=== PATIENT | male | born 1990 | race Caucasian/White ===

== ENCOUNTER 2017-04-06 15:41 | Inpatient (IN) | payer BC, OTHER ==
[~2017-04-06] VITALS: Ht 177.8 cm; Wt 61.2 kg
[2017-04-06] MEDS ORDERED: DICYCLOMINE HCL 20 MG TABLET PO PRN (21:15)
[2017-04-06] MEDS ORDERED: ACETAMINOPHEN 325 MG TABLET PO PRN (21:15)
[2017-04-06] MEDS ORDERED: diphenhydrAMINE 50 MG CAPSULE PO PRN (21:15)
[2017-04-06] MEDS ORDERED: LOPERAMIDE HCL 2 MG CAPSULE PO PRN ×2 (21:15)
[2017-04-06] MEDS ORDERED: MIRALAX 17 GM POWD.PACK PO PRN (21:15)
[2017-04-06] MEDS ORDERED: IBUPROFEN 600 MG TABLET PO PRN (21:15)
[2017-04-06] MEDS ORDERED: LORAZEPAM 1 MG TABLET PO PRN (21:15)
[2017-04-06] MEDS ORDERED: ONDANSETRON ODT 4 MG TAB.RAPDIS SL PRN (21:15)
[2017-04-06] MEDS ORDERED: HYDROXYZINE PAMOATE 25 MG CAPSULE PO PRN (21:15)
[2017-04-06] MEDS ORDERED: MAG HYDROX/AL HYDROX/SIMETH 30 ML LIQUID UDC PO PRN (21:15)
[2017-04-06] MEDS ORDERED: CLONIDINE HCL 0.1 MG TABLET PO PRN (21:15)
[2017-04-06] MEDS ORDERED: METHOCARBAMOL 750 MG TABLET PO PRN (21:15)
[2017-04-06] MEDS ORDERED: MAGNESIUM HYDROXIDE 30 ML LIQUID UDC PO PRN (21:15)
[2017-04-06] MEDS ORDERED: BUPRENORPHINE HCL 2 MG TAB.SUBL SL PRN (21:15)
[2017-04-06] MEDS ORDERED: ONDANSETRON 4 MG/2 ML VIAL IM PRN (21:15)
--- NOTE | 2017-04-06 21:40 | NUR ---
Pre Admission Note Patient is a 26-year old, male, seen at intake, AAOx4, no SOB and with slight anxiety noted at this time. Discussed with patient admission policies of the unit. Patient is coherent and able to respond to questions appropriately. Pt is ambulatory with steady gait. Vital signs taken and as follows: KQ=901/82, P=101, O2 sat on RA=97%, RR=16, T=97.9. Pt verbalized instructions and teachings regarding disposal of narcotic and other controlled home meds, unit protocols such as taking of vital signs Q4H and handling and disposal of contraband. Will continue with admission upon pts arrival on the unit.
[2017-04-06 21:50] VITALS: BP 131/82
--- NOTE | 2017-04-06 21:50 | NUR ---
Admission Note Pt is a 26 year old male admitted on 04/06/2017 for Opiate dependence, on the unit at 2150. Denies Allergies, denies any history of seizure.. Upon admission, COWS 4, BP 131/82, pulse 101, respirations 16, SpO2 97% room air, temp 97.9, weight 135 lb, height 5'10". Pts primary care provider is Dr. Ferraro in [place], [place] & reports smoking 1 pack of cigarettes/daily. Pt denies being hospitalized within the past 30 days. Pt is able to understand and respond to all questions pertaining to his hospitalization. Substance Abuse History is as Follows: 1.Heroin IV 2g/daily, last intake of 0.5g on 04/06/2017, at this rate for 11 days, pt has been using for 8 years 2. Methamphetamine IV 0.5g/daily, last intake of 0.2g/daily on 04/06/2017, at this rate for 11 days, pt has been using for 3-4 years. Pt reports using Suboxone 16mg strips for maintenance. Pt reports he last used Suboxone strips 8 months ago. When pt does not use she experiences s/s: "" sweats, chills, body aches, runny nose/teary eyes and anxiety". Pt longest sober period was for "4 months" in 2014. This is patients second time in treatment. Previous treatment history: 1. [facility], from December through January 2017 PMH: Asthma, depression, Insomnia, Anxiety and hx of Chlamydia. Pt denies being hospitalized within the past 30 days. Pt reports he was in custodial 2 weeks ago d/t violated probation, MRSA swab done. Pt is alert/oriented x4, PERRLA. Pt presents with anxiety, mild body aches, skin clammy, noted with sweat, respirations even/unlabored, denies SOB/chest pain, bowel sounds active x4, abdomen soft. Scars noted throughout upper torso and left and right arms due heroin/meth use, as reported by pt. Pt has abscess on left biceps and reddened track rachell/abscess on right biceps, pictures taken and placed in chart. Pt denies SI/HI. Education provided, education pamphlets provided and left at bedside, Pt oriented to room and encouraged to notify staff with any concerns. Safety measures in place, call light within reach, side rails up x2, bed locked and in low position. Will continue to monitor.
[2017-04-06 22:00] LABS: ETHANOL < 3 MG/DL (0-0)
[2017-04-06 22:04] LABS: ALANINE AMINOTRANSFERASE 28 U/L (16-63); ALKALINE PHOSPHATASE 63 U/L (50-136); ASPARTATE AMINOTRANSFERASE 13 U/L (15-37); BILIRUBIN,TOTAL 0.4 mg/dL (0.2-1.0); CARBON DIOXIDE 32 mmol/L (21-32); CHLORIDE 104 mmol/L (98-107); CREATININE 0.9 mg/dL (0.6-1.3); GLUCOSE 88 mg/dL (74-106); MAGNESIUM 2.3 mg/dL (1.8-2.4); POTASSIUM 3.7 mmol/L (3.5-5.1); TOTAL PROTEIN, SERUM 7.6 g/dL (6.4-8.2); UREA NITROGEN, BLOOD 17 mg/dL (7-18)
[2017-04-06 22:11] LABS: BASOPHILS # (AUTO) 0.2 K/uL (0.0-8.0); BASOPHILS % (AUTO) 1.9 % (0.0-2.0); EOSINOPHILS # (AUTO) 0.3 K/uL (0.0-0.7); EOSINOPHILS % (AUTO) 2.8 % (0.0-7.0); HEMATOCRIT 39.5 % (40-50); HEMOGLOBIN 13.4 G/DL (14.0-18.0); LYMPHOCYTES # (AUTO) 3.1 K/UL (0.8-4.8); LYMPHOCYTES % (AUTO) 25.2 % (20.5-51.5); MEAN CORPUSCULAR HEMOGLOBIN 27.5 UUG (27.0-31.0); MEAN CORPUSCULAR HGB CONC 34 g/dL (32.0-37.0); MEAN CORPUSCULAR VOLUME 81.1 FL (82.0-92.0); MONOCYTES # (AUTO) 0.5 K/UL (0.1-1.30); MONOCYTES % (AUTO) 4.4 % (0.0-11.0); NEUTROPHILS # (AUTO) 8.1 K/UL (1.8-8.9); NEUTROPHILS % (AUTO) 65.7 % (38.5-71.5); RED BLOOD CELL COUNT(AUTO) 4.87 MIL/UL (4.7-6.1); WHITE BLOOD COUNT (AUTO) 12.3 K/UL (4.0-11.2)
[2017-04-06 22:35] LABS: NEUTROPHILS % (MANUAL) 60 % (42-75)
[2017-04-06 22:36] LABS: EOSINOPHILS % (MANUAL) 1 % (0-8); LYMPHOCYTES % (MANUAL) 36 % (20-40); MONOCYTES % (MANUAL) 3 % (2-10); PLATELET COUNT (AUTO) 185 K/UL (150-450)
[2017-04-07] VITALS: BP 104/65
--- NOTE | 2017-04-07 | NUR ---
Vital Signs BP 104/65, pulse 82, resp 16, SpO2 99% room air, temp 97.6, no reports of pain COWS deferred d/t pt sleeping to assess while pt is awake as ordered. Safety measures in place, will continue to monitor.
[2017-04-07] MEDS ORDERED: ALBU8.5H8 IH (00:05)
[2017-04-07] MEDS ORDERED: BUPR1FIL3 SL (00:05)
[2017-04-07 04:00] VITALS: BP 96/52
--- NOTE | 2017-04-07 04:00 | NUR ---
Vital Signs BP 96/52, pulse 79, resp 16, SpO2 99% room air, temp 97.8, no reports of pain COWS deferred d/t pt sleeping to assess while pt is awake as ordered. Safety measures in place, will continue to monitor.
--- NOTE | 2017-04-07 07:00 | NUR ---
End of Shift Pt is a 26 year old male admitted for Heroin dependence. Pt reported using Heroin IV 2g/daily, last intake of 0.5g on 04/06/2017 and Methamphetamine IV 0.5g/daily, last intake of 0.2g/daily on 04/06/2017. PMH: Asthma, depression, Insomnia, Anxiety and hx of Chlamydia, NKA, regular diet, fall precautions and full code. No PRN medications administered during shift, COWS 4. . Pt has abscess on left biceps and reddened track rachell/abscess on right biceps, pictures taken and placed in chart. Urine drug not provided, will endorse onto day shift. Pt slept for 3 hours, intake of 355ml PO, voids x0 and stool x0. Safety measures in place, call light within reach, side rails up x2, bed locked and in low position. Endorsed to day shift nurse.
[2017-04-07 08:00] VITALS: BP 96/59
--- NOTE | 2017-04-07 08:00 | NUR ---
START OF SHIFT NOTE patient is alert and orientated X4. Patient was admitted last night. Patient is laying in bed, respirations are even and unlabored. Patient slept 3 hours last night according to night nurse with COWS 4. Vital signs are stable this morning, urine is to be collected. Abscess of right and Left arms were documented and accessed. All safety measures in place. Will continue to monitor.
[2017-04-07] MEDS ORDERED: TUBERCULIN,PURIF.PROT.DERIV. 5 TU/0.1 ML TEST ID ONE (09:00)
[2017-04-07] MEDS: LACTOBACILLUS RHAMNOSUS GG 1 EACH CAPSULE PO SCH ×2 (09:29→21:49)
[2017-04-07] MEDS: BUPRENORPHINE HCL 2 MG TAB.SUBL SL SCH ×4 (09:29→21:49)
[2017-04-07] MEDS: SULFAMETH/TRIMETH 800/160 MG TABLET PO SCH ×2 (09:29→21:49)
[2017-04-07] MEDS: MULTIVITAMINS,THERAPEUTIC TABLET PO SCH (09:29)
[2017-04-07 12:00] VITALS: BP 113/63
[2017-04-07 12:35] LABS: *AMPHETAMINE, URINE POSITIVE (NEGATIVE); *BARBITURATE, URINE NEGATIVE (NEGATIVE); *CANNABINOID, URINE NEGATIVE (NEGATIVE); *COCCAINE, URINE NEGATIVE (NEGATIVE); *OPIATE, URINE POSITIVE (NEGATIVE); *PHENCYCLIDINE SCREEN,URINE NEGATIVE (NEGATIVE)
--- NOTE | 2017-04-07 15:15 | NUR ---
Pt seen and examined by Dr. Marshall
[2017-04-07] MEDS ORDERED: ALBUTEROL INHALER INH PRN (15:45)
[2017-04-07 16:00] VITALS: BP 110/58
--- NOTE | 2017-04-07 16:50 | NUR ---
Therapist prompted client to attend daily group sessions at 11am and 3:30pm. Client stated that he would attend the next group if he was feeling well.
--- NOTE | 2017-04-07 18:56 | NUR ---
325 END OF SHIFT NOTE Patient is alert and orientated X4. Patient was admitted last night. NKA, full code, regular diet. Patients vitals have remained stable throughout the day. Last COWS 6. Patient started a Subutex taper and is tolerating well. He has remained in bed most of the day resting and did not attend group activities. TB was done today and urine was collected. Patient was seen by MD and is complaint with orders. All safety measures in place; call light within reach, bed locked and in lowest position. All needs have been met. Will continue to monitor patient until endorsed to oncoming night nurse.
--- NOTE | 2017-04-07 19:55 | NUR ---
START OF SHIFT Received report from day shift nurse. Pt is lying in bed watching TV. He is a 26 yo male admitted to [facility] on 04/06 for opiate dependence. He is A&O x4 and ambulatory. NKA, full code, regular diet. He has a PMH of asthma, anxiety, depression, insomnia, and h/o Chlamydia. On admission he reported using heroin 2 grams per day and methamphetamine 0.5 grams per day. 5 day Subutex taper started today. He reports chills, muscle aches, nasal stuffiness. He has dilated pupils and moist skin. Taper due tonight. Fall precautions in place. Bed is down with call light in reach.
[2017-04-07 20:00] VITALS: BP 116/56
[2017-04-07] MEDS: QUETIAPINE FUMARATE 100 MG TABLET PO SCH (21:00)
[2017-04-07] MEDS: GABAPENTIN 300 MG CAPSULE PO SCH (21:49)
[2017-04-08] VITALS: BP 113/62
[2017-04-08 04:00] VITALS: BP 96/52
--- NOTE | 2017-04-08 04:00 | NUR ---
0400 COWS deferred COWS ordered Q4HWA. Pt is lying in bed resting with eyes closed. Respirations even and unlabored. Vital signs obtained. Safety measures in place.
--- NOTE | 2017-04-08 07:22 | NUR ---
END OF SHIFT Report provided to day shift nurse. Pt is lying in bed resting. He is a 26 yo male admitted to [facility] on 04/06 for opiate dependence. He is A&O x4 and ambulatory. NKA, full code, regular diet. He has a PMH of asthma, anxiety, depression, insomnia, and h/o Chlamydia. On admission he reported using heroin 2 grams per day and methamphetamine 0.5 grams per day. 5 day Subutex taper started 04/07. No PRN medications administered. He refused 2100 Seroquel. Last COWS 4. He drank 591mL and slept for 8 hours. Fall precautions in place. Bed is down with call light in reach.
[2017-04-08 08:00] VITALS: BP 100/56
[2017-04-08] MEDS: SULFAMETH/TRIMETH 800/160 MG TABLET PO SCH ×2 (09:20→21:04)
[2017-04-08] MEDS: GABAPENTIN 300 MG CAPSULE PO SCH ×2 (09:20→21:04)
[2017-04-08] MEDS: MULTIVITAMINS,THERAPEUTIC TABLET PO SCH (09:20)
[2017-04-08] MEDS: buPROPion XL 150 MG TAB.SR.24H PO SCH (09:20)
[2017-04-08] MEDS: BUPRENORPHINE HCL 2 MG TAB.SUBL SL SCH ×3 (09:20→21:04)
[2017-04-08] MEDS: LACTOBACILLUS RHAMNOSUS GG 1 EACH CAPSULE PO SCH ×2 (09:20→21:03)
--- NOTE | 2017-04-08 09:30 | NUR ---
START OF SHIFT Received report from senior embedded software engineer nurse. Patient is 26 year old male admitted for medically supervised withdrawal from heroin. Patient is full code with NKA. On 5-day Subutex taper (started 04/07/17). On assessment this AM: COWS: 6. Denies SOB, chest pain. vitals signs 100/56, HR 80, R19, temp 98.1, 02 sat 98% RA. Reports mild anxiety, body aches, stuffy nose, pupil dilation noted. Med compliant with AM meds. Redness, swelling and warmth noted on L and R upper arms due to abscess. Photos taken, possible I&D today. Warm packs applied on affected areas. Antibiotic po given to patient. Patient was encouraged to attend group meetings today. Will continue to monitor patient.
[2017-04-08 10:12] LABS: HEPATITIS B SURFACE AG Negative (Negative)
[2017-04-08 12:00] VITALS: BP 94/59
[2017-04-08 16:00] VITALS: BP 96/53
--- NOTE | 2017-04-08 19:15 | NUR ---
END OF SHIFT Patient is 26 year old male admitted for medically supervised withdrawal from heroin. Patient is full code with NKA. On 5-day Subutex taper (started 04/07/17). Most recent COWS: 3. Patient reports anxiety, stuffy nose, pupil dilation noted. Seen by PARTS LISTER in the afternoon regarding patient's abscess. Explained to PARTS LISTER there is decreased swelling and redness noted as compared to the photos taken previously. No I&D procedure at this time per PARTS LISTER. Pt. is agreeable with the plan at this time. Applied warm packs this afternoon. Will continue to monitor the affected sites. Med compliant with routine meds during this shift. Patient tolerating meals without n/v. night fillerassistant shift supervisor will continue to monitor patient.
--- NOTE | 2017-04-08 19:55 | NUR ---
START OF SHIFT Received report from day shift nurse. Pt is resting in bed watching TV. He is a 26 yo male admitted to [facility] on 04/06 for opiate dependence. He is A&O x4 and ambulatory. NKA, full code, regular diet. He has a PMH of asthma, anxiety, depression, insomnia, and h/o Chlamydia. On admission he reported using heroin 2 grams per day and methamphetamine 0.5 grams per day. 5 day Subutex taper started today. He reports chills, muscle aches, nasal stuffiness. He has dilated pupils and moist skin. Taper due tonight. Fall precautions in place. Bed is down with call light in reach.
[2017-04-08 20:00] VITALS: BP 95/62
[2017-04-08] MEDS: QUETIAPINE FUMARATE 100 MG TABLET PO SCH (21:00)
[2017-04-08] MEDS: CLONIDINE HCL 0.1 MG TABLET PO SCH (21:00)
[2017-04-08] MEDS: BACLOFEN 10 MG TABLET PO SCH (21:03)
[2017-04-09] VITALS: BP 97/59
--- NOTE | 2017-04-09 04:00 | NUR ---
Vitals/COWS Pt refused to be woken for 0400 vitals. Pt is lying in bed resting. Respirations even and unlabored. COWS ordered Q4HWA. Safety measures in place.
--- NOTE | 2017-04-09 07:08 | NUR ---
END OF SHIFT Report provided to day shift nurse. Pt is lying in bed resting. He is a 26 yo male admitted to [facility] on 04/06 for opiate dependence. He is A&O x4 and ambulatory. NKA, full code, regular diet. He has a PMH of asthma, anxiety, depression, insomnia, and h/o Chlamydia. On admission he reported using heroin 2 grams per day and methamphetamine 0.5 grams per day. 5 day Subutex taper started today. No PRN medications administered. Clonidine held due to decreased B/P and Seroquel refused. Last COWS was 3. He drank 1315mL and slept for 6 hours. Fall precautions in place. Bed is down with call light in reach.
[2017-04-09 08:00] VITALS: BP 101/56
[2017-04-09] MEDS: CLONIDINE HCL 0.1 MG TABLET PO SCH ×2 (08:48→21:33)
[2017-04-09] MEDS: MULTIVITAMINS,THERAPEUTIC TABLET PO SCH (08:49)
[2017-04-09] MEDS: LACTOBACILLUS RHAMNOSUS GG 1 EACH CAPSULE PO SCH ×2 (08:49→21:33)
[2017-04-09] MEDS: SULFAMETH/TRIMETH 800/160 MG TABLET PO SCH ×2 (08:49→21:33)
[2017-04-09] MEDS: buPROPion XL 150 MG TAB.SR.24H PO SCH (08:49)
[2017-04-09] MEDS: BACLOFEN 10 MG TABLET PO SCH ×3 (08:49→21:33)
[2017-04-09] MEDS: GABAPENTIN 300 MG CAPSULE PO SCH ×3 (08:49→21:33)
[2017-04-09] MEDS ORDERED: BUPRENORPHINE HCL 2 MG TAB.SUBL SL SCH (09:00)
--- NOTE | 2017-04-09 09:08 | NUR ---
START OF SHIFT Received report from cook night nurse. Patient is 26 year old male admitted for medically supervised withdrawal from heroin. Patient is full code with NKA. On 5-day Subutex taper (started 04/07/17). On assessment this AM: COWS: 3. Denies SOB, chest pain. Vitals signs 101/56, HR 66, R17, temp 97.4, 02 sat 99% RA. Reports mild anxiety, body aches, pupil dilation noted. Med compliant with AM meds. Held clonidine per parameter order. Redness, swelling and warmth noted on L and R upper arms due to abscess. Warm packs applied on affected areas. Antibiotic po given to patient. Patient was encouraged to attend group meetings today. Will continue to monitor patient.
[2017-04-09 12:00] VITALS: BP 107/58
[2017-04-09] MEDS: BUPRENORPHINE HCL 2 MG TAB.SUBL SL SCH ×2 (14:52→21:33)
[2017-04-09 16:00] VITALS: BP 103/48
--- NOTE | 2017-04-09 19:15 | NUR ---
END OF SHIFT Patient is 26 year old male admitted for medically supervised withdrawal from heroin. Patient is full code with NKA. On 5-day Subutex taper (started 04/07/17). Most recent COWS: 3. Patient reports mild anxiety, pupil dilation noted. Redness, swelling and warmth noted on L and R upper arms due to abscess. Warm packs applied on affected areas. Patient reports he is feeling better. Will continue to monitor the affected sites. Read PPD skin today, negative result. Med compliant with routine meds during this shift. awake overnight counselordate night caregiver will continue to monitor patient.
--- NOTE | 2017-04-09 19:16 | NUR ---
Start of shift note Received report from day shift nurse. Pt is a 26 yo male, A+Ox4, presenting to [facility] for Opiate/Meth dependence. Pt has NKA, is on Full code status and on Regular diet. Pt is on Fall precautions. Pt has HX of Anxiety, Asthma, Depression, insomnia, and Chlamydia. Pt is on 5 day Subutex taper, tolerated well. No s/s of distress noted at this time. Respirations even and unlabored. Will continue to monitor.
[2017-04-09 20:55] VITALS: BP 115/63
[2017-04-09] MEDS: QUETIAPINE FUMARATE 100 MG TABLET PO SCH (21:33)
[2017-04-10 00:47] VITALS: BP 99/57
[2017-04-10 04:16] VITALS: BP 103/62
--- NOTE | 2017-04-10 06:58 | NUR ---
End of shift note Pt is a 26 yo male, A+Ox4, presenting to [facility] for Opiate/Meth dependence. Pt has NKA, is on Full code status and on Regular diet. Pt is on Fall precautions. Pt has HX of Anxiety, Asthma, Depression, insomnia, and Chlamydia. Pt is on 5 day Subutex taper, tolerated well. Pt slept for a total of 9 HRS. Last COWS: 2 @0400. No s/s of distress noted at this time. Respirations even and unlabored. Will endorse to day shift nurse.
--- NOTE | 2017-04-10 07:05 | NUR ---
Start of Shift Endorsement received from nightshift nurse. Pt is a 26 y/o male admitted for Heroin and Meth dependence. Pt has been placed on a 5 day Subutex taper. Pt is tolerating the taper AEB COWS 2 at 0400. Pt did not receive any PRN medications. Pt reports sleeping 9 hours and feeling rested. VS WNL. Full Code. PT is alert and oriented x4. Pt is in STABLE condition at this time. Remains compliant with medication and diet regimen. All needs have been met, All safety measures in place per hospital policy. Bed in lowest position, side rails up x2, call-light within reach. Will continue to monitor
[2017-04-10 08:00] VITALS: BP 101/59
[2017-04-10] MEDS: BACLOFEN 10 MG TABLET PO SCH ×2 (08:46→15:38)
[2017-04-10] MEDS: buPROPion XL 150 MG TAB.SR.24H PO SCH (08:46)
[2017-04-10] MEDS: CLONIDINE HCL 0.1 MG TABLET PO SCH ×2 (08:47→20:25)
[2017-04-10] MEDS: GABAPENTIN 300 MG CAPSULE PO SCH ×3 (08:47→20:25)
[2017-04-10] MEDS: MULTIVITAMINS,THERAPEUTIC TABLET PO SCH (08:47)
[2017-04-10] MEDS: BUPRENORPHINE HCL 2 MG TAB.SUBL SL SCH ×3 (08:48→20:24)
[2017-04-10] MEDS: SULFAMETH/TRIMETH 800/160 MG TABLET PO SCH ×2 (08:48→20:24)
[2017-04-10] MEDS: LACTOBACILLUS RHAMNOSUS GG 1 EACH CAPSULE PO SCH ×2 (09:51→20:24)
[2017-04-10 12:00] VITALS: BP 107/55
[2017-04-10 16:00] VITALS: BP 116/71
[2017-04-10] MEDS ORDERED: BACLOFEN 10 MG TABLET PO PRN (16:45)
[2017-04-10] MEDS ORDERED: BUPR-96 PO (17:25)
[2017-04-10] MEDS ORDERED: QUET100T PO (17:25)
[2017-04-10] MEDS ORDERED: CLON0.1T14 PO (17:25)
[2017-04-10] MEDS ORDERED: BACL10TA PO (17:25)
[2017-04-10] MEDS ORDERED: HYDR-3895 PO (17:25)
[2017-04-10] MEDS ORDERED: DICY20TA28 PO (17:25)
[2017-04-10] MEDS ORDERED: GABA-534 PO (17:25)
[2017-04-10] MEDS ORDERED: IBUP-1955 PO (17:25)
--- NOTE | 2017-04-10 19:11 | NUR ---
End of Shift Endorsement given to nightshift nurse. Pt is a 26 y/o male admitted for Heroin and Meth dependence. Pt has been placed on a 5 day Subutex taper. Pt is tolerating the taper AEB COWS 2 at 1600. Pt did not receive any PRN medications. Pt did not participate in groups or activities. Encouraged pt to leave the room and participate in groups. Educated pt on diet and medication regimen. VS WNL. Full Code. Intake: 1150ml, Void x2, BM x1. PT is alert and oriented x4. Pt is in STABLE condition at this time. Remains compliant with medication and diet regimen. All needs have been met, All safety measures in place per hospital policy. Bed in lowest position, side rails up x2, call-light within reach. Will continue to monitor
[2017-04-10] MEDS: QUETIAPINE FUMARATE 100 MG TABLET PO SCH (20:25)
[2017-04-10 20:35] VITALS: BP 101/72
[2017-04-11 00:12] VITALS: BP 92/61
[2017-04-11 04:03] VITALS: BP 95/64
--- NOTE | 2017-04-11 07:00 | NUR ---
End of shift note Pt is a 26 yo male, A+Ox4, presenting to [facility] for Opiate/Meth dependence. Pt has NKA, is on Full code status and on Regular diet. Pt is on Fall precautions. Pt has HX of Anxiety, Asthma, Depression, insomnia, and Chlamydia. Pt is on 5 day Subutex taper, tolerated well. Pt slept for a total of 10 HRS. Last COWS: 1 @0400. No s/s of distress noted at this time. Respirations even and unlabored. Will endorse to day shift nurse.
--- NOTE | 2017-04-11 07:06 | NUR ---
Start of Shift Endorsement received from nightshift nurse. Pt is a 26 y/o male admitted for Heroin and Meth dependence. Pt has been placed on a 5 day Subutex taper. Pt is tolerating the taper AEB COWS 1 at 0400. Pt did not receive any PRN medications. Pt reports sleeping 10 hours and feeling rested. VS WNL. Full Code. PT is alert and oriented x4. Pt is in STABLE condition at this time. Remains compliant with medication and diet regimen. All needs have been met, All safety measures in place per hospital policy. Bed in lowest position, side rails up x2, call-light within reach. Will continue to monitor
[2017-04-11 08:00] VITALS: BP 94/62
[2017-04-11] MEDS ORDERED: BUPRENORPHINE HCL 2 MG TAB.SUBL SL SCH (09:00)
[2017-04-11] MEDS: CLONIDINE HCL 0.1 MG TABLET PO SCH (09:14)
[2017-04-11] MEDS: LACTOBACILLUS RHAMNOSUS GG 1 EACH CAPSULE PO SCH ×2 (09:14→20:53)
[2017-04-11] MEDS: GABAPENTIN 300 MG CAPSULE PO SCH ×3 (09:14→20:54)
[2017-04-11] MEDS: SULFAMETH/TRIMETH 800/160 MG TABLET PO SCH ×2 (09:14→20:53)
[2017-04-11] MEDS: MULTIVITAMINS,THERAPEUTIC TABLET PO SCH (09:14)
[2017-04-11] MEDS: buPROPion XL 150 MG TAB.SR.24H PO SCH (09:14)
[2017-04-11 12:00] VITALS: BP 102/68
[2017-04-11] MEDS ORDERED: CLONIDINE HCL 0.1 MG TABLET PO PRN (14:15)
[2017-04-11 16:00] VITALS: BP 118/62
[2017-04-11 18:44] LABS: *AMPHETAMINE, URINE NEGATIVE (NEGATIVE); *BARBITURATE, URINE NEGATIVE (NEGATIVE); *CANNABINOID, URINE NEGATIVE (NEGATIVE); *COCCAINE, URINE NEGATIVE (NEGATIVE); *OPIATE, URINE POSITIVE (NEGATIVE); *PHENCYCLIDINE SCREEN,URINE NEGATIVE (NEGATIVE)
--- NOTE | 2017-04-11 18:52 | NUR ---
End of Shift Endorsement given to nightshift nurse. Pt is a 26 y/o male admitted for Heroin and Meth dependence. Pt has been placed on a 5 day Subutex taper. Pt is tolerating the taper AEB COWS 1 at 1600. Pt has completed the taper and has been scheduled to be discharged on 04/12/17. Pt did not receive any PRN medications. Pt participate in groups or activities. Provided discharge education and all discharge paperwork and documentation has been completed. Encouraged pt to leave the room and participate in groups. Reinforced pt on S/E of withdrawals and how to deal with them. VS WNL. Full Code. Intake: 1900ml, Void x2, BM x1. PT is alert and oriented x4. Pt is in STABLE condition at this time. Remains compliant with medication and diet regimen. All needs have been met, All safety measures in place per hospital policy. Bed in lowest position, side rails up x2, call-light within reach. Will continue to monitor
--- NOTE | 2017-04-11 19:15 | NUR ---
Start of Shift Patient Received. Patient is in his room watching TV. Patient is alert and oriented. Breathing even and non labored. No signs of pain or discomfort. Patient is a 26 year old male, admitted on 04/06/17 for Opiate Dependence under the care of Dr. Duque. Patient has completed a 5 day Subutex taper. Patient verbalizes no known allergies, wishes to be full code, following a regular diet, placed on fall precautions. Skin is noted with Bilateral upper extremities Abscesses and continues on ATB Therapy Bactrim DS. Past Medical History verbalized as Anxiety, Asthma, Depression, insomnia, and history of Chlamydia. Per endorsement, patient is set for discharge tomorrow 04/12/17. No PRN Medication administered. Last noted COWS is 1. All needs attended to promptly. Will continue plan of care as ordered.
[2017-04-11 20:48] VITALS: BP 105/59
[2017-04-11] MEDS: QUETIAPINE FUMARATE 100 MG TABLET PO SCH (20:53)
[2017-04-12 00:20] VITALS: BP 108/64
[2017-04-12 04:00] VITALS: BP 103/53
--- NOTE | 2017-04-12 07:05 | NUR ---
Start of Shift Endorsement received from nightshift nurse. Pt is a 26 y/o male admitted for Heroin and Meth dependence. Pt has been placed on a 5 day Subutex taper. Pt is tolerating the taper AEB COWS 1 at 0400. Pt did not receive any PRN medications. Pt reports sleeping 8 hours and feeling rested. Pt has completed his taper and has been scheduled for discharge today, 04/12/17. UDS has been completed, all discharge documentation has been completed, discharge education has been provided to the pt. VS WNL. Full Code. PT is alert and oriented x4. Pt is in STABLE condition at this time. Remains compliant with medication and diet regimen. All needs have been met, All safety measures in place per hospital policy. Bed in lowest position, side rails up x2, call-light within reach. Will continue to monitor
--- NOTE | 2017-04-12 07:09 | NUR ---
End of Shift Patient Received. Patient is in bed sleeping. Breathing even and non labored. No signs of pain or discomfort noted. Patient is a 26 year old male, admitted on 04/06/17 for Opiate Dependence under the care of Dr. Duque. Patient has completed a 5 day Subutex taper. Patient verbalizes no known allergies, wishes to be full code, following a regular diet, placed on fall precautions. Skin is noted with Bilateral upper extremities Abscesses and continues on ATB Therapy Bactrim DS. Past Medical History verbalized as Anxiety, Asthma, Depression, insomnia, and history of Chlamydia. Per endorsement, patient is set for discharge today 04/12/17. No PRN Medication administered. All needs attended to promptly. Will continue plan of care as ordered.
[2017-04-12] MEDS: LACTOBACILLUS RHAMNOSUS GG 1 EACH CAPSULE PO SCH (08:31)
[2017-04-12] MEDS: GABAPENTIN 300 MG CAPSULE PO SCH (08:31)
[2017-04-12] MEDS: MULTIVITAMINS,THERAPEUTIC TABLET PO SCH (08:31)
[2017-04-12] MEDS: buPROPion XL 150 MG TAB.SR.24H PO SCH (08:31)
[2017-04-12] MEDS: SULFAMETH/TRIMETH 800/160 MG TABLET PO SCH (08:31)
--- NOTE | 2017-04-12 09:27 | NUR ---
Discharge note PT has been discharged from [facility] to [facility]. PT is in Stable condition, VS WNL. Denies suicidal and homicidal ideations at this time. . All documentation has been completed, paperwork signed and dated. Pt left with all of his belongings, medications and prescriptions. Pt has been discharged from [facility] on 04/12/2017 at 0927. has been Notified.
== END 2017-04-12 09:27 | disposition other institution (70) | DRG 895 ==
LOC: SRC 20:49
PROVIDERS: ADMIT Internal Medicine; ATTEND Internal Medicine
PROC: HZ2ZZZZ Detoxification Services for Substance Abuse Treatment (ICD-10-PCS; principal; 2017-04-06)
PROC: HZ31ZZZ Individual Counseling for Substance Abuse Treatment, Behavioral (ICD-10-PCS; 2017-04-08)
DX: F11.23 Opioid dependence with withdrawal (principal); L03.114 Cellulitis of left upper limb; L03.113 Cellulitis of right upper limb; L02.413 Cutaneous abscess of right upper limb; L02.414 Cutaneous abscess of left upper limb; F32.2 Major depressive disorder, single episode, severe without psychotic features; S51.032S Puncture wound without foreign body of left elbow, sequela; S51.031S Puncture wound without foreign body of right elbow, sequela; X78.8XXS Intentional self-harm by other sharp object, sequela; F17.210 Nicotine dependence, cigarettes, uncomplicated; F41.9 Anxiety disorder, unspecified; G47.00 Insomnia, unspecified; Z82.49 Family history of ischemic heart disease and other diseases of the circulatory system; Z81.8 Family history of other mental and behavioral disorders; Z81.1 Family history of alcohol abuse and dependence; D50.9 Iron deficiency anemia, unspecified; Z59.1 Inadequate housing; F15.220 Other stimulant dependence with intoxication, uncomplicated
CPT/HCPCS: 36415; 70030-TC; 80307; 80324; 80361; 83735; 85025; 86592; 86705; 86803; 87340; 87806; G0480

== ENCOUNTER 2017-07-26 13:32 | Inpatient (IN) | payer BC, OTHER ==
[~2017-07-26] VITALS: Ht 177.8 cm; Wt 54.0 kg
[~2017-07-26 13:32] MED LIST: ALBU8.5H8 IH; BACL10TA PO; BUPR-96 PO; CLON0.1T14 PO; DICY20TA28 PO; GABA-534 PO; HYDR-3895 PO; IBUP-1955 PO; QUET100T PO
[2017-07-28] MEDS ORDERED: ACETAMINOPHEN 325 MG TABLET PO PRN (03:00)
[2017-07-28] MEDS ORDERED: diphenhydrAMINE 50 MG CAPSULE PO PRN (03:00)
[2017-07-28] MEDS ORDERED: MAG HYDROX/AL HYDROX/SIMETH 30 ML LIQUID UDC PO PRN (03:00)
[2017-07-28] MEDS ORDERED: DICYCLOMINE HCL 20 MG TABLET PO PRN (03:00)
[2017-07-28] MEDS ORDERED: ONDANSETRON 4 MG/2 ML VIAL IM PRN (03:00)
[2017-07-28] MEDS ORDERED: ONDANSETRON ODT 4 MG TAB.RAPDIS SL PRN (03:00)
[2017-07-28] MEDS ORDERED: MAGNESIUM HYDROXIDE 30 ML LIQUID UDC PO PRN (03:00)
[2017-07-28] MEDS ORDERED: LOPERAMIDE HCL 2 MG CAPSULE PO PRN ×2 (03:00)
[2017-07-28] MEDS ORDERED: MIRALAX 17 GM POWD.PACK PO PRN (03:00)
--- NOTE | 2017-07-28 03:10 | NUR ---
PRE ADMISSION Pt is a 27 y/o male, seen at intake, AAOx4, moderately intoxicated at this time. Discussed with patient the admission policies of the unit. Patient is coherent and able to respond to questions appropriately. Pt is ambulatory with steady gait. Vital signs taken and as follows: BP: 146/67, P:104, R: 16, O2: 98%, T: 98.6, PA: 0/10. Pt verbalized understanding of instructions and teachings regarding disposal of narcotic and other controlled home medications, unit protocols such as taking of vital signs Q4H and handling and disposal of contraband. Will continue with admission upon pts arrival on the unit.
--- NOTE | 2017-07-28 03:19 | NUR ---
ADMISSION NOTE Pt is a 27 y/o male admitted on 07/28/17 for opiate and meth dependence, arrived on the unit at 0319. Pt has NKA, denies history of seizures. Pt was unable to provide UDS at this time. Upon admission COW 1, BP: 146/67, P:104, R: 16, O2: 98%, T: 98.6, PA: 0/10. Weight 119, height 510. Pt reports he has lost 20 lbs in the past 3 months. Pt reports he does have a PCP, smokes 1 pack daily, reports being in longterm within past 30 days, denies being hospitalized within past 30 days. Pt is able to understand and respond to all questions pertaining to his hospitalization. Substance Abuse History is as follows: 1. Heroin IV 3 grams daily, last intake 1 gram two hours prior to admission per pt on 07/28/17, at this rate for 2 months. 2. Methamphetamine IV 1.5-2 grams daily, last intake of 0.5 gram on 07/27/17, at this rate for 2 months. Pts longest sober period for 4 months, 4 years ago. Treatment history: [facility], [facility] x 2, 7 years ago for "4 days then I went AMA," and in February 2017 for 30 days, [facility], [facility] for 7 days in March 2017, [facility], [facility] for 50 days in April 2017 and [place], [facility] for "3-5 days" in Mid-June 2017. Pt reports substance use history with father, mother and sister. PMH: Anxiety, depression, insomnia, asthma. Pt has not needed his Albuterol inhaler for over a few months. Pt denies any hx of seizures. Pt did not bring any medications from home, but brought a paper prescription that was not yet filled for Bactrim for his abscesses. Pt has one abscess on left upper arm and right upper arm, drained and packed on 07/23/17. Upon assessment, pt is AAOx4, pt is moderately intoxicated, presents with slurred speech, pale skin and fatigue. Respirations even and unlabored. Denies SOB, chest pain, N/V/D. Bowel sounds active x 4, abdomen soft. PERRLA. Pt has edema in left and right lower arms near wrists that has been present since 07/27/17. Pt has numerous track north in bilateral arms. Pictures taken/placed in chart. Pt denies SI/HI. Educational information provided and left at bedside. Pt oriented to room and encouraged to notify staff with any concerns. Safety measures in place. Call light within reach, side rails up x 2, bed locked and in low position. Will continue to monitor.
[2017-07-28] MEDS ORDERED: SULF1TAB48 PO (03:25)
[2017-07-28 04:00] VITALS: BP 146/67
[2017-07-28 04:06] LABS: ALANINE AMINOTRANSFERASE 21 U/L (16-63); ALKALINE PHOSPHATASE 72 U/L (50-136); AMYLASE 42 U/L (25-115); ASPARTATE AMINOTRANSFERASE 8 U/L (15-37); BILIRUBIN,TOTAL 0.3 mg/dL (0.2-1.0); CARBON DIOXIDE 31 mmol/L (21-32); CHLORIDE 103 mmol/L (98-107); GLUCOSE 91 mg/dL (74-106); LIPASE 51 U/L (73-393); MAGNESIUM 1.9 mg/dL (1.8-2.4); POTASSIUM 4.1 mmol/L (3.5-5.1); THYROID STIMULATING HORMONE 2.144 mIU/mL (0.358-3.740); TOTAL PROTEIN, SERUM 7.2 g/dL (6.4-8.2)
[2017-07-28 04:10] LABS: ETHANOL < 3 MG/DL (0-0)
[2017-07-28] MEDS ORDERED: ALPR1TAB7 PO (04:45)
[2017-07-28] MEDS ORDERED: BUPR1FIL SL (04:45)
[2017-07-28] MEDS ORDERED: QUET200T PO (04:45)
[2017-07-28] MEDS ORDERED: ALBU2SYR PO (04:45)
[2017-07-28] MEDS ORDERED: ZOLP5TAB2 PO (04:45)
[2017-07-28] MEDS ORDERED: BUPR100T5 PO (04:45)
[2017-07-28 04:55] LABS: BASOPHILS % (AUTO) 0.5 % (0.0-2.0); EOSINOPHILS # (AUTO) 0.6 K/uL (0.0-0.7); EOSINOPHILS % (AUTO) 7.8 % (0.0-7.0); HEMATOCRIT 36.1 % (40-50); HEMOGLOBIN 12.2 G/DL (14.0-18.0); LYMPHOCYTES % (AUTO) 25.3 % (20.5-51.5); MEAN CORPUSCULAR HEMOGLOBIN 26.9 UUG (27.0-31.0); MEAN CORPUSCULAR HGB CONC 34 g/dL (32.0-37.0); MEAN CORPUSCULAR VOLUME 79.7 FL (82.0-92.0); MONOCYTES # (AUTO) 0.5 K/UL (0.1-1.30); MONOCYTES % (AUTO) 6.1 % (0.0-11.0); NEUTROPHILS # (AUTO) 4.9 K/UL (1.8-8.9); NEUTROPHILS % (AUTO) 60.3 % (38.5-71.5); PLATELET COUNT (AUTO) 206 K/UL (150-450); RED BLOOD CELL COUNT(AUTO) 4.53 MIL/UL (4.7-6.1)
[2017-07-28 05:01] LABS: UREA NITROGEN, BLOOD 17 mg/dL (7-20)
--- NOTE | 2017-07-28 07:08 | NUR ---
END OF SHIFT Pt is a 27 y/o male admitted on 07/28/17 for opiate and meth dependence. Pt was dependent on 3 gram heroin IV daily and 1.5-2 grams meth IV daily for the past 2 months. Pt is full code, regular diet, NKA and fall precautions. Pt has hx of ETOH use 2 years ago, denies hx of seizures. Pt reports PMH of anxiety, depression, asthma and insomnia. No ordered taper at this time. Pt was moderately intoxicated upon admission, last intake of heroin IV 1 gram at 0100 on 07/28/17. Pt presented with slurred speech, pale skin and fatigue. Last COW 1. No medications administered. Pt unable to provide UDS. Labs drawn/provided. MRSA swab obtained, sent to lab d/t pt reporting being in assisted in past 30 days. Last BM on 07/27/17. Pt slept 1 hour, intake 500 ml, void x 0, stool x 0. Safety measures in place. Call light within reach. Pts needs have been met. Endorsed to day shift nurse.
--- NOTE | 2017-07-28 07:30 | NUR ---
START OF SHIFT Pt 27 y/o male admitted for opiate and methamphetamine dependence. Pt received in room on bed with eyes closed resting, but easily arousable to name. Pt alert and oriented to name, place, and time. Perrla. Skin warm and dry to touch. Respirations even and unlabored. It was reported that pt slept for 1 hour last night. Bed on lowest position with side rails x2 up for safety. Call light within reach. No distress noted at this time.
[2017-07-28 08:00] VITALS: BP 90/49
[2017-07-28] MEDS: MULTIVITAMINS,THERAPEUTIC TABLET PO SCH (09:00)
[2017-07-28 12:00] VITALS: BP 99/50
[2017-07-28] MEDS: BUPRENORPHINE HCL 2 MG TAB.SUBL SL PRN ×2 (12:52→17:12)
[2017-07-28] MEDS: METHOCARBAMOL 750 MG TABLET PO PRN ×2 (12:52→22:04)
--- NOTE | 2017-07-28 13:00 | NUR ---
PRN Pt with cows=12. Subutex 4 mg sL prn per MD order given and tolerated well.
[2017-07-28] MEDS ORDERED: QUETIAPINE FUMARATE 25 MG TABLET PO PRN (14:00)
--- NOTE | 2017-07-28 14:00 | NUR ---
PRN EVAL Pt with cows=5
[2017-07-28 14:48] LABS: *AMPHETAMINE, URINE POSITIVE (NEGATIVE); *BARBITURATE, URINE NEGATIVE (NEGATIVE); *CANNABINOID, URINE NEGATIVE (NEGATIVE); *COCCAINE, URINE NEGATIVE (NEGATIVE); *OPIATE, URINE POSITIVE (NEGATIVE); *PHENCYCLIDINE SCREEN,URINE NEGATIVE (NEGATIVE)
[2017-07-28 16:00] VITALS: BP 104/62
[2017-07-28] MEDS: CLONIDINE HCL 0.1 MG TABLET PO PRN (17:12)
[2017-07-28] MEDS: HYDROXYZINE PAMOATE 25 MG CAPSULE PO PRN (17:12)
[2017-07-28] MEDS: IBUPROFEN 400 MG TABLET PO PRN (17:12)
--- NOTE | 2017-07-28 17:14 | NUR ---
PRN Pt with cows=15. Subutex sL prn per MD order given and tolerated well.
--- NOTE | 2017-07-28 17:15 | NUR ---
PRN Pt states has 6/10 generalized body pain. Motrin po prn per MD order given and tolerated well.
--- NOTE | 2017-07-28 17:15 | NUR ---
PRN Pt states feels anxious. Vistaril po prn per MD order given and tolerated well.
--- NOTE | 2017-07-28 17:16 | NUR ---
PRN Pt states feels very anxious. Catapres po prn per MD order given and tolerated well.
--- NOTE | 2017-07-28 18:14 | NUR ---
PRN EVAL Pt with cows=5, observed on bed watching television.
--- NOTE | 2017-07-28 18:15 | NUR ---
JACKIE CHENEY Pt states body pain 09/22.
--- NOTE | 2017-07-28 18:16 | NUR ---
PRN EVAL Pt observed on bed watching television.
--- NOTE | 2017-07-28 19:13 | NUR ---
END OF SHIFT Pt 27 y/o male admitted for opiate and methamphetamine dependence. Pt alert and oriented to name, place, and time. Perrla. Skin warm and moist to touch. Respirations even and unlabored. Bilateral hand tremors noted. Pt observed mostly isolative to room throughout the day. Pt did not attend group activity today. Pt was seen by MD today. Pt medication compliant and tolerated well. No ASE noted. Bed on lowest position with side rais x2 up for safety. Call light within reach. No distress noted at this time.
--- NOTE | 2017-07-28 19:30 | NUR ---
START OF SHIFT Pt is a 27 y/o male admitted on 07/28/17 for opiate and meth dependence. Pt was dependent on 3 gram heroin IV daily and 1.5-2 grams meth IV daily for the past 2 months. Pt is full code, regular diet, NKA and fall precautions. Pt has hx of ETOH dependence 2 years ago, denies hx of seizures. Pt reports PMH of anxiety, depression, asthma and insomnia. Pt is on a 5 day Subutex taper that starts at 2100. Pt administered PRN Subutex 4 mg x 2 during day shift, tolerated well. Pt administered PRN Subutex 4 mg, Vistaril, Motrin and Clonidine at 1719. Upon assessment pt is laying in bed with eyes closed. Upon awakening pt presents with anxiety, fatigue, chills, stuffy nose, nausea, decreased appetite, dysphoria, anhedonia. Respirations 16, even and unlabored. Denies V/D. Denies chest pain or SOB. Medications due. Safety measures in place with padded rails. Call light within reach. Will continue to monitor. Addendum: 07/28/17 at 2227 by IRASEMA POOL RN Pt also complains of generalized body aches 01/20. Pt has one abscess on each upper arm, previously drained and packed prior to admission. Wound consult ordered. Pt also has non-pitting edema present near wrists in bilateral arms. Pt reports localized pain at sites of abscesses and swelling.
[2017-07-28 20:00] VITALS: BP_SYST 113; BP_DIAS 54; BP_DIAS 63
[2017-07-28] MEDS: SULFAMETH/TRIMETH 800/160 MG TABLET PO SCH (20:27)
[2017-07-28] MEDS: LACTOBACILLUS RHAMNOSUS GG 1 EACH CAPSULE PO SCH (20:27)
--- NOTE | 2017-07-28 20:27 | NUR ---
PRN GARETHAN SL ADMINISTRATION Pt reports nausea, denies vomiting since admission. Safety measures in place. Call light within reach. Will continue to monitor.
--- NOTE | 2017-07-28 20:57 | NUR ---
JACKIE ARRIETA REASSESSMENT Pt reports improvement in nausea, but has not ceased. Will continue to monitor. Safety measures in place. Call light within reach.
[2017-07-28] MEDS ORDERED: BUPRENORPHINE HCL 2 MG TAB.SUBL SL SCH (21:00)
--- NOTE | 2017-07-28 22:04 | NUR ---
PRN ROBAXIN ADMINISTRATION Pt reports generalized body aches 02/20. Pt laying in bed watching TV. Safety measures in place. Call light within reach. Will continue to monitor.
--- NOTE | 2017-07-28 23:04 | NUR ---
JACKIE PENG REASSESSMENT Pt is laying in bed watching TV. Pt reports improvement in body aches to tolerable level. Safety measures in place. Call light within reach. Will continue to monitor.
[2017-07-29] VITALS: BP 98/55
--- NOTE | 2017-07-29 | NUR ---
COWS DEFERRED Pt is laying in bed with eyes closed, COWS deferred, to be assessed when pt is awake per orders. Respirations 14, even and unlabored. Safety measures in place. Call light within reach. Will continue to monitor.
[2017-07-29 04:00] VITALS: BP 105/53
--- NOTE | 2017-07-29 04:00 | NUR ---
COWS DEFERRED Pt is laying in bed with eyes closed, COWS deferred, to be assessed when pt is awake per orders. Respirations 16, even and unlabored. Safety measures in place. Call light within reach. Will continue to monitor.
--- NOTE | 2017-07-29 07:13 | NUR ---
END OF SHIFT Pt is a 27 y/o male admitted on 07/28/17 for opiate and meth dependence. Pt was dependent on 3 gram heroin IV daily and 1.5-2 grams meth IV daily for the past 2 months. Pt is full code, regular diet, NKA and fall precautions. Pt has hx of ETOH dependence 2 years ago, denies hx of seizures. Pt reports PMH of anxiety, depression, asthma and insomnia. Pt is on a 5 day Subutex taper that started on 07/28/17, tolerating well. Pt presented with anxiety, body aches 5/10, fatigue, chills, stuffy nose, nausea, decreased appetite, dysphoria, anhedonia. Scheduled medications and PRN Zofran and Robaxin administered, effective in S/S of withdrawal as verbalized by pt. Pt has one abscess on each upper arm, previously drained and packed prior to admission. Wound consult ordered. Pt also has swelling present near wrists in bilateral arms. Pt reports localized pain at sites of abscesses and swelling. Last COW 7 at 2000. Pt slept 9 hours, intake 1151 ml, void x 0, stool x 0. Safety measures in place. Call light within reach. Will continue to monitor. Endorsed to day shift nurse.
--- NOTE | 2017-07-29 07:30 | NUR ---
START OF SHIFT Pt 27 y/o male admitted for opiate and methamphetamine dependence. Pt received in room on bed with eyes closed resting, but easily arousable to name. Pt alert and oriented to name, place, and time. Perrla. Skin warm and moist to touch. Perspiration noted on forehead. Respirations even and unlabored. Bilateral hand tremors noted. It was reported that pt slept for 9 hours last night. Bed on lowest position with side rails x2 up for safety. Call light within reach. No distress noted at this time.
[2017-07-29 08:00] VITALS: BP 101/62
[2017-07-29] MEDS ORDERED: TUBERCULIN,PURIF.PROT.DERIV. 5 TU/0.1 ML TEST ID ONE (09:00)
[2017-07-29] MEDS: LACTOBACILLUS RHAMNOSUS GG 1 EACH CAPSULE PO SCH ×2 (09:18→20:25)
[2017-07-29] MEDS: METHOCARBAMOL 750 MG TABLET PO PRN ×2 (09:18→20:25)
[2017-07-29] MEDS: SULFAMETH/TRIMETH 800/160 MG TABLET PO SCH ×2 (09:18→20:25)
[2017-07-29] MEDS: BUPRENORPHINE HCL 2 MG TAB.SUBL SL SCH ×3 (09:18→20:25)
[2017-07-29] MEDS: MULTIVITAMINS,THERAPEUTIC TABLET PO SCH (09:18)
--- NOTE | 2017-07-29 09:23 | NUR ---
PRN Pt with c/o generalized body aches 02/20. Robaxin po prn per MD order given and tolerated well.
--- NOTE | 2017-07-29 10:23 | NUR ---
PRN EVAL Pt states body aches 11/20.
[2017-07-29 11:07] LABS: HEPATITIS B SURFACE AG Negative (Negative)
[2017-07-29] MEDS: IBUPROFEN 400 MG TABLET PO PRN (11:07)
--- NOTE | 2017-07-29 11:10 | NUR ---
PRN Pt states has right hand pain aching 7/10. Tylenol po prn per MD order given and tolerated well.
--- NOTE | 2017-07-29 11:11 | NUR ---
PRN Pt states has aching pain of right hand 7/10. Motrin po prn per MD order given and tolerated well.
--- NOTE | 2017-07-29 12:10 | NUR ---
PRN DEYANIRA Pt states pain 12/21.
--- NOTE | 2017-07-29 12:11 | NUR ---
PRN EVAL Pt states body aches 10/23.
[2017-07-29 12:52] VITALS: BP 90/49
[2017-07-29] MEDS: HYDROXYZINE PAMOATE 25 MG CAPSULE PO PRN (14:39)
[2017-07-29] MEDS: CLONIDINE HCL 0.1 MG TABLET PO PRN (14:40)
--- NOTE | 2017-07-29 14:44 | NUR ---
PRN Pt states feels anxious. Vistaril po prn per MD order given and tolerated well.
--- NOTE | 2017-07-29 14:44 | NUR ---
PRN Pt states still feels anxious. Catapres po prn per MD order given and tolerated well.
--- NOTE | 2017-07-29 15:35 | NUR ---
Therapist prompted client about group times. Client stated he'll start attending groups tomorrow when he feels better.
--- NOTE | 2017-07-29 15:38 | NUR ---
Therapist prompted client about group times. Client stated he will start attending groups tomorrow when he feels better.
--- NOTE | 2017-07-29 15:44 | NUR ---
PRN EVAL Pt observed in patio. No distress noted at this time.
[2017-07-29 17:11] VITALS: BP 106/65
--- NOTE | 2017-07-29 18:11 | NUR ---
END OF SHIFT Pt 27 y/o male admitted for opiate and methamphetamine dependence. Pt alert and oriented to name, place, and time. Perrla. Skin warm and moist to touch. Respirations even and unlabored. Bilateral hand tremors noted. Pt observed mostly isolative to room throughout the day. Pt did not attend group activity today. Pt was seen by MD today. Pt medication compliant and tolerated well. No ASE noted. Bed on lowest position with side rais x2 up for safety. CAll light within reach. No distress noted at this time.
--- NOTE | 2017-07-29 19:30 | NUR ---
START OF SHIFT Pt is a 27 y/o male admitted on 07/28/17 for opiate and meth dependence. Pt was dependent on 3 gram heroin IV daily and 1.5-2 grams meth IV daily for the past 2 months. Pt is full code, regular diet, NKA and fall precautions. Pt has hx of ETOH dependence 2 years ago, denies hx of seizures. Pt reports PMH of anxiety, depression, asthma and insomnia. Pt is on a 4 day Subutex taper that started on 07/29/17, tolerating well. Upon assessment pt is laying in bed watching TV and presents with anxiety, fatigue, chills, stuffy nose, nausea, decreased appetite, increased HR, body aches 6/10, stomach cramps, larger than normal pupil size, dysphoria, anhedonia. Pt has one abscess on each upper arm, previously drained and packed prior to admission. Pt also has non-pitting edema present near wrists in bilateral arms. Pt reports localized pain at sites of abscesses and swelling, which has improved since yesterday. Respirations 16, even and unlabored. Denies N/V/D. Denies chest pain or SOB. Medications due. Safety measures in place with padded rails. Call light within reach. Will continue to monitor.
[2017-07-29 20:00] VITALS: BP 117/61
--- NOTE | 2017-07-29 20:25 | NUR ---
PRN ROBAXIN ADMINISTRATION Pt reports body aches 02/20. Safety measures in place. Call light within reach. Will continue to monitor.
--- NOTE | 2017-07-29 21:25 | NUR ---
JACKIE PENG REASSESSMENT Pt reports body aches 10/23. Safety measures in place. Call light within reach. Will continue to monitor.
[2017-07-29] MEDS: QUETIAPINE FUMARATE 100 MG TABLET PO PRN (21:49)
--- NOTE | 2017-07-29 21:49 | NUR ---
PRN SEROQUEL ADMINISTRATION Pt requests sleep aid. Safety measures in place. Call light within reach. Will continue to monitor.
--- NOTE | 2017-07-29 22:49 | NUR ---
PRN SEROQUEL REASSESSMENT Pt is laying in bed with eyes closed. Respirations 16, even and unlabored. Safety measures in place. Call light within reach. Will continue to monitor.
[2017-07-30] VITALS: BP 107/47
--- NOTE | 2017-07-30 | NUR ---
COW DEFERRED Pt is laying in bed with eyes closed. COW deferred, to be assessed when pt is awake per orders. Safety measures in place. Call light within reach. Will continue to monitor.
[2017-07-30 04:00] VITALS: BP 106/64
--- NOTE | 2017-07-30 07:12 | NUR ---
END OF SHIFT Pt is a 27 y/o male admitted on 07/28/17 for opiate and meth dependence. Pt was dependent on 3 gram heroin IV daily and 1.5-2 grams meth IV daily for the past 2 months. Pt is full code, regular diet, NKA and fall precautions. Pt has hx of ETOH dependence 2 years ago, denies hx of seizures. Pt reports PMH of anxiety, depression, asthma and insomnia. Pt is on a 4 day Subutex taper that started on 07/29/17, tolerating well. Pt presented with anxiety, fatigue, chills, stuffy nose, nausea, decreased appetite, increased HR, body aches /10, stomach cramps, larger than normal pupil size, dysphoria, anhedonia. Scheduled medications and PRN Robaxin and Seroquel administered, effective in S/S of withdrawal as verbalized by pt. Last COW 7 at 1999. Pt has one abscess on each upper arm, previously drained and packed prior to admission. Pt also has non-pitting edema present near wrists in bilateral arms. Pt reports localized pain at sites of abscesses and swelling, which has improved since yesterday. Pt slept 7 hours, intake 1082 ml, void x 3, stool x 1. Safety measures in place. Call light within reach. Pts needs have been met. Endorsed to day shift nurse.
--- NOTE | 2017-07-30 07:30 | NUR ---
START OF SHIFT Pt 27 y/o male admitted for opiate and methamphetamine dependence. Pt received in room on bed with eyes closed resting, but easily arousable to name. Pt alert and oriented to name, place, and time. Perrla. Skin warm and moist to touch. Respirations even and unlabored. Bilateral hand tremors noted. It was reported that pt slept for 7 hours last night. Bed on lowest position with side rails x2 up for safety. Call light within reach. No distress noted at this time.
[2017-07-30 08:00] VITALS: BP 90/44
[2017-07-30] MEDS ORDERED: BUPRENORPHINE HCL 2 MG TAB.SUBL SL SCH (09:00)
[2017-07-30] MEDS: MULTIVITAMINS,THERAPEUTIC TABLET PO SCH (09:34)
[2017-07-30] MEDS: HYDROXYZINE PAMOATE 25 MG CAPSULE PO PRN (09:34)
[2017-07-30] MEDS: LACTOBACILLUS RHAMNOSUS GG 1 EACH CAPSULE PO SCH ×2 (09:34→23:03)
[2017-07-30] MEDS: METHOCARBAMOL 750 MG TABLET PO PRN (09:34)
[2017-07-30] MEDS: SULFAMETH/TRIMETH 800/160 MG TABLET PO SCH ×2 (09:34→23:03)
--- NOTE | 2017-07-30 09:36 | NUR ---
PRN pt states feels anxious. vistaril po prn per MD order given and tolerated well.
--- NOTE | 2017-07-30 09:37 | NUR ---
PRN Pt states has body aches 6/10. Robaxin po prn per MD order given and tolerated well.
--- NOTE | 2017-07-30 10:36 | NUR ---
JACKIE MCMILLAN Pt observed in room on bed watching television.
--- NOTE | 2017-07-30 10:37 | NUR ---
PRN EVAL Pt states body aches 10/23.
[2017-07-30 12:00] VITALS: BP 106/62
--- NOTE | 2017-07-30 12:00 | NUR ---
WOUND CARE CONSULT: PT PRESENTS WITH BILAT UPPER ARM WOUNDS, S/P I&D. RECOMMENDATIONS MADE AND DISCUSSED WITH NURSING STAFF. PACKING WAS REMOVED. RECOMMEND SURGICAL FOLLOW UP. DEFER TO MD. PT TOLERATED WELL. WILL SEE PRN. CARPENTER IN AGREEMENT WITH PLAN OF CARE. Addendum: 07/30/17 at 1202 by SHAHIDA VELASCO RN Amended: Links added.
[2017-07-30] MEDS: BACITRACIN/POLYMYXIN B OINT 15 GM TUBE TOP SCH (13:26)
[2017-07-30] MEDS: BUPRENORPHINE HCL 2 MG TAB.SUBL SL SCH ×2 (14:18→23:03)
[2017-07-30 17:47] VITALS: BP 121/64
[2017-07-30] MEDS ORDERED: IBUPROFEN 600 MG TABLET PO PRN (18:00)
--- NOTE | 2017-07-30 19:12 | NUR ---
Start of shift note Received report from day shift nurse. Pt is a 27 yo male, A+Ox4, presenting to [facility] for Opiate/Meth dependence. Pt has NKA, is on Full code status, and on Regular diet. Pt is on Fall precautions. Pt has HX of Asthma, Anxiety, Depression, Insomnia, and Chlamydia. Pt is on 4 day Subutex taper, tolerated well. No s/s of distress noted at this time. Respirations even and unlabored. Will continue to monitor.
[2017-07-30 20:12] VITALS: BP 123/77
[2017-07-30] MEDS: GABAPENTIN 300 MG CAPSULE PO SCH (23:03)
[2017-07-30] MEDS: QUETIAPINE FUMARATE 100 MG TABLET PO PRN (23:17)
--- NOTE | 2017-07-30 23:17 | NUR ---
PRN Seroquel Pt c/o inability to sleep and requested for PRN Seroquel. Medication given and tolerated well. Will reassess within 1 HR. Will continue to monitor.
[2017-07-31] VITALS (7 sets, daily range): BP systolic 102–127; BP diastolic 46–75
--- NOTE | 2017-07-31 00:15 | NUR ---
PRN Seroquel Reassessment Medication given and tolerated well. No s/s of ASE/distress noted at this time. Respirations even and unlabored. Will continue to monitor.
--- NOTE | 2017-07-31 07:00 | NUR ---
End of shift note Pt is a 27 yo male, A+Ox4, presenting to [facility] for Opiate/Meth dependence. Pt has NKA, is on Full code status, and on Regular diet. Pt is on Fall precautions. Pt has HX of Asthma, Anxiety, Depression, Insomnia, and Chlamydia. Pt is on 4 day Subutex taper, tolerated well. Pt was given PRN Seroquel @2317. Pt slept for a total of 7 HRS. Last COWS: 3 @0400. No s/s of distress noted at this time. Respirations even and unlabored. Will endorse to day shift nurse.
--- NOTE | 2017-07-31 07:30 | NUR ---
START OF SHIFT Pt 27 y/o male admitted for opiate and methamphetamine dependence. Pt received in room on bed with eyes closed resting, but easily arousable to name. Pt alert and oriented to name, place, and time. Perrla. Skin warm and moist to touch. Respirations even and unlabored. Bilateral hand tremors noted slightly. Pt still feels anxious this morning, but the anxiety is better than the previous day. It was reported that pt slept for 7 hours last night. Bed on lowest position with side rails x2 up for safety. Call light within reach. No distress noted at this time.
[2017-07-31] MEDS: SULFAMETH/TRIMETH 800/160 MG TABLET PO SCH ×2 (09:39→20:47)
[2017-07-31] MEDS: BACITRACIN/POLYMYXIN B OINT 15 GM TUBE TOP SCH (09:39)
[2017-07-31] MEDS: GABAPENTIN 300 MG CAPSULE PO SCH ×2 (09:39→20:47)
[2017-07-31] MEDS: MULTIVITAMINS,THERAPEUTIC TABLET PO SCH (09:39)
[2017-07-31] MEDS: LACTOBACILLUS RHAMNOSUS GG 1 EACH CAPSULE PO SCH ×2 (09:39→20:47)
[2017-07-31] MEDS: BUPRENORPHINE HCL 2 MG TAB.SUBL SL SCH ×3 (09:39→20:47)
--- NOTE | 2017-07-31 18:43 | NUR ---
END OF SHIFT Pt 27 y/o male admitted for opiate and methamphetamine dependence. Pt alert and oriented to name, place, and time. Perrla. Skin warm and moist to touch. Respirations even and unlabored. Bilateral hand tremors noted. Pt observed mostly isolative to room throughout the day. Pt did not attend group activity today. Pt was seen by MD today. Pt medication compliant and tolerated well. No ASE noted. Bed on lowest position with side rails x2 up for safety. Call light within reach. No distress noted at this time.
--- NOTE | 2017-07-31 19:30 | NUR ---
START OF SHIFT Pt 27 y/o male admitted for opiate and methamphetamine dependence. Pt is A/A/O X 3. Per day shift report, Pt was mostly isolative in room throughout the day. Pt did not attend group activity today. Continues on Subutex taper as ordered.Pt medication compliant and tolerated well. No A/R noted; all safety measures in place. Bed locked in the lowest position with side rails x2 up for safety. Call light within reach. No distress noted at this time.Last COWS=3,will continue to monitor.
[2017-07-31] MEDS: HYDROXYZINE PAMOATE 25 MG CAPSULE PO PRN (23:07)
[2017-07-31] MEDS: QUETIAPINE FUMARATE 100 MG TABLET PO PRN (23:07)
--- NOTE | 2017-07-31 23:08 | NUR ---
PRN VISTARIL AND SEROQUEL GIVEN ORDERED,FOR C/O ANXIETY AND INSOMNIA RESPECTIVELY.WILL MONITOR.
[2017-08-01] VITALS: BP_SYST 118; BP_SYST 119; BP_DIAS 64; BP_DIAS 71
--- NOTE | 2017-08-01 00:08 | NUR ---
PRN VISTARIL AND SEROQUEL ARE EFFECTIVE.ANXIETY RELIEVED,PT IS RESTING IN BED WITH EYES CLOSED,IN DEEP SLEEP.WILL CONTINUE TO MONITOR.
[2017-08-01 04:00] VITALS: BP 97/51
--- NOTE | 2017-08-01 06:42 | NUR ---
END OF SHIFT Pt 27 y/o male admitted for opiate and methamphetamine dependence. Pt is A/A/O X 3. Continues on Subutex taper as ordered.Pt medication compliant and tolerated well. No A/R noted;PRN Vistaril and Seroquel were given last night for anxiety and insomnia; pt slept 4 hrs hrs,fluid intake was 1047 mls;voided x 2; b/m x 1; all safety measures in place. Bed locked in the lowest position with side rails x2 up for safety. Call light within reach. No distress noted at this time.Last COWS=2,will continue to monitor.
--- NOTE | 2017-08-01 07:05 | NUR ---
Start of Shift Endorsement received from nightshift nurse. Pt is a 27 y/o male admitted for Heroin and Meth. Pt has been placed on a 4 day Subutex taper. Pt is tolerating the taper and mildly withdrawing AEB COWS 2 at 1999. PT received PRN Seroquel and Vistaril. Pt slept 4 hours during the night. PT appears to be sleeping at this time. Breathing even and unlabored, responsive to touch and name. VS WNL. Full Code. PT is alert and oriented x4. Pt is in STABLE condition at this time. Remains compliant with medication and diet regimen. All needs have been met, All safety measures in place per hospital policy. Bed in lowest position, side rails up x2, call-light within reach. Will continue to monitor
[2017-08-01 08:00] VITALS: BP 111/56
[2017-08-01] MEDS: LACTOBACILLUS RHAMNOSUS GG 1 EACH CAPSULE PO SCH ×2 (08:51→20:21)
[2017-08-01] MEDS: SULFAMETH/TRIMETH 800/160 MG TABLET PO SCH ×2 (08:51→20:21)
[2017-08-01] MEDS: MULTIVITAMINS,THERAPEUTIC TABLET PO SCH (08:52)
[2017-08-01] MEDS: BACITRACIN/POLYMYXIN B OINT 15 GM TUBE TOP SCH (08:52)
[2017-08-01] MEDS: GABAPENTIN 300 MG CAPSULE PO SCH ×2 (08:52→20:21)
[2017-08-01] MEDS ORDERED: BUPRENORPHINE HCL 2 MG TAB.SUBL SL SCH (09:00)
[2017-08-01 12:00] VITALS: BP 125/71
[2017-08-01 16:00] VITALS: BP 119/65
--- NOTE | 2017-08-01 19:09 | NUR ---
End of Shift Endorsement given to nightshift nurse. Pt is a 27 y/o male admitted for Heroin and Meth. Pt has been placed on a 4 day Subutex taper. Pt is tolerating the taper and mildly withdrawing AEB COWS 3 at 1600. Pt did not receive any PRN medications. Pt did not participate in groups or activities despite repeated encouragements. Intake: 1600ml, Void x2, BM x0. PT remained in his room most of the day, reporting he just wanted to rest. Breathing even and unlabored, responsive to touch and name. VS WNL. Full Code. PT is alert and oriented x4. Pt is in STABLE condition at this time. Remains compliant with medication and diet regimen. All needs have been met, All safety measures in place per hospital policy. Bed in lowest position, side rails up x2, call-light within reach. Will continue to monitor
--- NOTE | 2017-08-01 19:30 | NUR ---
START OF SHIFT Pt is 27 y/o male admitted for opiate and methamphetamine dependence. Pt is A/A/O X 4. Continues on Subutex taper as ordered.Pt medication compliant and tolerated well. No A/R noted; pt stayed in room most of day,per day shift;no PRN meds were given ; all safety measures in place. Bed locked in the lowest position with side rails x2 up for safety. Call light within reach. No s/s of distress noted at this time.Last COWS=3,will continue to monitor.
[2017-08-01 20:00] VITALS: BP 125/69
[2017-08-01] MEDS ORDERED: IBUP-1955 PO (21:06)
[2017-08-01] MEDS ORDERED: DICY20TA28 PO (21:06)
[2017-08-01] MEDS ORDERED: METH-406 PO (21:06)
[2017-08-01] MEDS ORDERED: HYDR-3895 PO (21:06)
[2017-08-01] MEDS ORDERED: GABA-534 PO (21:06)
[2017-08-01] MEDS ORDERED: SULF1TAB3 PO (21:06)
[2017-08-01] MEDS ORDERED: LACT1CAP57 PO (21:06)
[2017-08-02] VITALS: BP 122/71
--- NOTE | 2017-08-02 04:00 | NUR ---
V/S REFUSED,COWS DEFERRED Pt is laying in bed with eyes closed ,in deep sleep,refused v/s; COWS d/t sleep. Safety measures in place. Call light within reach. Will continue to monitor.
--- NOTE | 2017-08-02 06:42 | NUR ---
END OF SHIFT Pt is 27 y/o male admitted for opiate and methamphetamine dependence. Pt is A/A/O X 4. Subutex taper completed.Pt is scheduled for DC today; no PRN meds were given ; pt slept 7 hrs,fluid intake was 1565 mls,voided x 3; all safety measures in place. Bed locked in the lowest position with side rails x2 up for safety. Call light within reach. No s/s of distress noted at this time.Last COWS=2,will continue to monitor.
--- NOTE | 2017-08-02 07:10 | NUR ---
Start of Shift Endorsement received from nightshift nurse. PT is a 39 y/o female admitted for alcohol dependence. PT has been placed on 4 day Ativan taper. PT is tolerating the taper well AEB COWS 2 at 1999. Pt id not receive any PRN medications. Pt reports sleeping 7 hours. PT reports feeling rested and reports readiness for sobriety. VS WNL. Full Code. PT is alert and oriented x4. Pt is in STABLE condition at this time. Remains compliant with medication and diet regimen. All needs have been met, All safety measures in place per hospital policy. Bed in lowest position, side rails up x2, call-light within reach. Will continue to monitor
[2017-08-02 08:00] VITALS: BP 119/64
[2017-08-02] MEDS: GABAPENTIN 300 MG CAPSULE PO SCH (08:14)
[2017-08-02] MEDS: LACTOBACILLUS RHAMNOSUS GG 1 EACH CAPSULE PO SCH (08:14)
[2017-08-02] MEDS: MULTIVITAMINS,THERAPEUTIC TABLET PO SCH (08:14)
[2017-08-02] MEDS: SULFAMETH/TRIMETH 800/160 MG TABLET PO SCH (08:14)
[2017-08-02] MEDS: BACITRACIN/POLYMYXIN B OINT 15 GM TUBE TOP SCH (08:44)
--- NOTE | 2017-08-02 09:43 | NUR ---
Discharge note PT has been discharged from [facility] PT is in Stable condition, VS WNL. Denies suicidal and homicidal ideations at this time. . All documentation has been completed, paperwork signed and dated. Pt left with all of his belongings, medications and prescriptions. Pt has been discharged from [facility] on 08/02/17 at 0943. has been Notified.
== END 2017-08-02 09:43 | disposition other institution (70) | DRG 895 ==
LOC: SRC 07-28 02:29
PROVIDERS: ADMIT Internal Medicine; ATTEND Internal Medicine
PROC: HZ2ZZZZ Detoxification Services for Substance Abuse Treatment (ICD-10-PCS; principal; 2017-07-28)
PROC: HZ31ZZZ Individual Counseling for Substance Abuse Treatment, Behavioral (ICD-10-PCS; 2017-07-30)
PROC: HZ41ZZZ Group Counseling for Substance Abuse Treatment, Behavioral (ICD-10-PCS; 2017-07-31)
DX: F11.23 Opioid dependence with withdrawal (principal); D50.9 Iron deficiency anemia, unspecified; F15.229 Other stimulant dependence with intoxication, unspecified; F17.210 Nicotine dependence, cigarettes, uncomplicated; F32.9 Major depressive disorder, single episode, unspecified; L02.414 Cutaneous abscess of left upper limb; L02.413 Cutaneous abscess of right upper limb; F41.9 Anxiety disorder, unspecified; G47.00 Insomnia, unspecified; J45.20 Mild intermittent asthma, uncomplicated; Z82.49 Family history of ischemic heart disease and other diseases of the circulatory system; Z81.1 Family history of alcohol abuse and dependence; Z81.3 Family history of other psychoactive substance abuse and dependence; Z59.1 Inadequate housing; S41.142S Puncture wound with foreign body of left upper arm, sequela; S41.141S Puncture wound with foreign body of right upper arm, sequela; X78.8XXS Intentional self-harm by other sharp object, sequela; Z81.8 Family history of other mental and behavioral disorders
CPT/HCPCS: 36415; 70030-TC; 80307; 80324; 80361; 83690; 83735; 84443; 85025; 86580; 86592; 86705; 86803; 87340; 87806; A4663; G0480; Q0162

== ENCOUNTER 2018-05-12 18:30 | Inpatient (IN) | payer BC, OTHER ==
[~2018-05-12] VITALS: Ht 177.8 cm; Wt 56.7 kg
[~2018-05-12 18:30] MED LIST changes: -BACL10TA PO; -BUPR-96 PO; -CLON0.1T14 PO; +LACT1CAP57 PO; +METH-406 PO; +SULF1TAB3 PO
--- NOTE | 2018-05-12 21:55 | NUR ---
Pre-Admission Note Pt is a 27 year old male seen at intake. Pt presents in a wheelchair, is intoxicated. When asking questions pertaining to history, pt responds to questions, then returns to sleep. Pt requires constant awaking to complete assessment. Pt reported he presents to [facility] for benzodiazepines and opiate withdrawal. Vital signs taken, rules of the unit explained such as vital signs Q4H, wasting of controlled substances, kitchen access, and smoking patio privileges. Pt verbalized understanding. Will continue with admission process upon arrival on unit.
[2018-05-12] MEDS ORDERED: LOPERAMIDE HCL 2 MG CAPSULE PO PRN ×2 (22:00)
[2018-05-12] MEDS ORDERED: MAGNESIUM HYDROXIDE 30 ML LIQUID UDC PO PRN (22:00)
[2018-05-12] MEDS ORDERED: ONDANSETRON 4 MG/2 ML VIAL IM PRN (22:00)
[2018-05-12] MEDS ORDERED: IBUPROFEN 600 MG TABLET PO PRN (22:00)
[2018-05-12] MEDS ORDERED: LORAZEPAM 2 MG/1 ML VIAL IM PRN (22:00)
[2018-05-12] MEDS ORDERED: MIRALAX 17 GM POWD.PACK PO PRN (22:00)
[2018-05-12] MEDS ORDERED: LORAZEPAM 1 MG TABLET PO PRN ×2 (22:00)
[2018-05-12] MEDS ORDERED: CLONIDINE HCL 0.1 MG TABLET PO PRN (22:00)
[2018-05-12] MEDS ORDERED: diphenhydrAMINE 50 MG CAPSULE PO PRN (22:00)
[2018-05-12] MEDS ORDERED: ACETAMINOPHEN 325 MG TABLET PO PRN (22:00)
[2018-05-12] MEDS ORDERED: BUPRENORPHINE HCL 2 MG TAB.SUBL SL PRN (22:00)
[2018-05-12] MEDS ORDERED: ONDANSETRON ODT 4 MG TAB.RAPDIS SL PRN (22:00)
[2018-05-12] MEDS ORDERED: HYDROXYZINE PAMOATE 25 MG CAPSULE PO PRN (22:00)
[2018-05-12] MEDS ORDERED: MAG HYDROX/AL HYDROX/SIMETH 30 ML LIQUID UDC PO PRN (22:00)
[2018-05-12] MEDS ORDERED: DICYCLOMINE HCL 20 MG TABLET PO PRN (22:00)
--- NOTE | 2018-05-12 22:10 | NUR ---
Admission note Pt is a 27 yo male, A+Ox4, presenting to [facility] for medically supervised Benzo/Opiate withdrawal. Pt was also using Methamphetamine. Pt has NKA, is on Full code status, and on Regular diet. Pt is 510 in height and 125 LBS in weight. V/S WNL. Respirations even and unlabored. Pt presents with appearance of severe intoxication. Pt has a mild odor, appears disheveled, has unkempt clothing, and is not well groomed. Pt has apparent track north on bilateral arms from IV drug usage. Pt is drowsy and says I havent slept for a few days. Substance use HX: Pt reports having HX of Benzo/Opiate/Meth use. Pt expresses that in the past week he was hospitalized for Heroin overdose where he was revived with Narcan. Pt states, I was sober for about 4 to 5 months from 07/2017 to 12/2017 before relapsing and using for the past 4 months. 1. Xanax Started using at age of 20 currently taking 6mg/daily for the past 4 months Last dose was 2mg on 05-12-18. 2. Valium Started using at the age of 20 currently taking 40mg/daily for the past 4 months Last dose was 20mg on 05-12-18 3. Heroin IV Started using at the age of 18 currently taking 1gm/daily for the past 4 months Last dose was 0.5gm on 05-12-18 4. Methamphetamine IV/smoke Started using at the age of 20 currently taking 0.5gm/daily for the past 4 months Last dose was 0.5gm on 05-12-18 Withdrawal: Pt appears severely intoxicated, drowsy, and having mildly slurred speech when dozing off. Pt is easily woken up but tends to begin to fall asleep whenever there is a short period of silence. Pt expresses his typical withdrawal symptoms to be sweats, chills, agitation, anxiety, and N/V/D. Consequences of Substance Abuse: Pt has no HX of seizures, withdrawal induced delirium, nor withdrawal induced cardiac complications. Pt has HX of blackouts stating, every now and then I have days/nights that I cant remember what happened. I have been to long-term before mainly due to my drug use. About a week ago I was in the hospital for an overdose where they revived me with Narcan. My drug use has definitely put a strain on my personal life, friendships, and family relationships. My drug use has also caused me to attend multiple detox/rehab treatments. I just want to get sober again. Im not sure why I relapsed this time, but I do know that I was having major cravings. Medical/Psychiatric conditions: Pt has Primary care provider named Dr. Horton Pt has no HX of SI/SA/HI, has never been on a Psychiatric hold/hospitalization, but states, I wouldnt say that I have ever tried to kill myself, but I have had times when I was very reckless with my drug usage and I could have , like last week. Pt states, I take Seroquel 200mg daily for my bipolar and depression. 1. Anxiety 2. Depression 3. Bipolar 4. Chlamydia Treatment HX: Pt expresses that he has gone to multiple treatments and his most recent was 7 days at [facility] in 07/2017 followed by 90 days @ able to change and then continued sobriety for about 1 month totaling a sobriety period of about 4 to 5 months. Pt relapsed about 4 months ago until current day. Motivation: Pt states, I first started using drugs when I was 18 because I had a lot of influence from my family (Mother, Father, Sister) and friends. I liked the way the drugs made me feel so I just kept doing them. Gosia tried to stop plenty of times before but I just keep on going right back to using. I just want to be sober again and get my life together. When Im using I find it very hard to go even a short period of time without using so thats why I have been up for a few days and Im very tired now. My body is begging for sleep. Pt is in bed resting at this time. Pt is in stable condition with respirations even and unlabored. Will continue to monitor.
[2018-05-12 22:17] LABS: BASOPHILS # (AUTO) 0.1 K/uL (0.0-8.0); BASOPHILS % (AUTO) 0.9 % (0.0-2.0); EOSINOPHILS # (AUTO) 0.3 K/uL (0.0-0.7); EOSINOPHILS % (AUTO) 4.1 % (0.0-7.0); HEMATOCRIT 38.2 % (36.7-47.1); HEMOGLOBIN 13.1 g/dL (12.5-16.3); LYMPHOCYTES # (AUTO) 2.5 K/uL (20.0-40.0); LYMPHOCYTES % (AUTO) 34.2 % (20.5-51.5); MEAN CORPUSCULAR HEMOGLOBIN 28.2 uug (23.8-33.4); MEAN CORPUSCULAR HGB CONC 34 g/dL (32.5-36.3); MEAN CORPUSCULAR VOLUME 82.3 fL (73.0-96.2); MONOCYTES # (AUTO) 0.8 K/uL (2.0-10.0); MONOCYTES % (AUTO) 10.2 % (0.0-11.0); NEUTROPHILS # (AUTO) 3.8 K/uL (1.8-8.9); NEUTROPHILS % (AUTO) 50.6 % (38.5-71.5); PLATELET COUNT (AUTO) 134 K/uL (152-348); RED BLOOD CELL COUNT(AUTO) 4.65 MIL/uL (4.06-5.63); WHITE BLOOD COUNT (AUTO) 7.4 K/uL (3.6-10.2)
[2018-05-12 22:36] LABS: ALANINE AMINOTRANSFERASE 27 U/L (16-63); ALKALINE PHOSPHATASE 69 U/L (50-136); AMYLASE 41 U/L (25-115); ASPARTATE AMINOTRANSFERASE 16 U/L (15-37); BILIRUBIN,TOTAL 0.4 mg/dL (0.2-1.0); CARBON DIOXIDE 34 mmol/L (21-32); CHLORIDE 100 mmol/L (98-107); CREATININE 0.9 mg/dL (0.6-1.3); GLUCOSE 80 mg/dL (74-106); LIPASE 87 U/L (73-393); MAGNESIUM 2.2 mg/dL (1.8-2.4); TOTAL PROTEIN, SERUM 7.5 g/dL (6.4-8.2); UREA NITROGEN, BLOOD 15 mg/dL (7-18)
[2018-05-12 22:42] LABS: *AMPHETAMINE, URINE POSITIVE (NEGATIVE); *BARBITURATE, URINE NEGATIVE (NEGATIVE); *CANNABINOID, URINE NEGATIVE (NEGATIVE); *COCCAINE, URINE NEGATIVE (NEGATIVE); *OPIATE, URINE POSITIVE (NEGATIVE); *PHENCYCLIDINE SCREEN,URINE NEGATIVE (NEGATIVE)
[2018-05-12 23:00] LABS: ETHANOL < 3 MG/DL (0-0)
[2018-05-13] VITALS (8 sets, daily range): BP systolic 95–119; BP diastolic 43–72
[2018-05-13 00:11] LABS: THYROID STIMULATING HORMONE 2.233 mIU/mL (0.358-3.740)
--- NOTE | 2018-05-13 00:20 | NUR ---
COWS and CIWA deferred for severe intoxication. Respirations even and unlabored. Will continue to monitor.
--- NOTE | 2018-05-13 04:29 | NUR ---
COWS and CIWA Assessment COWS: 7 and CIWA: 6. Pt noted with chills, restlessness, enlarged pupils, stuffy nose, fine tremors, yawning, anxiety, agitation, and sweat on brow. Respirations even and unlabored. Will continue to monitor.
--- NOTE | 2018-05-13 07:00 | NUR ---
End of shift note Pt was continuously noted with anxiety, agitation, and fatigue. Pt remained in room for entire shift. Pt remained cooperative and compliant with all aspects of treatment. Pt was not given any PRN medications during shift. Pt remains on PRN medications until further evaluation from MD. Pt slept for a total of 7 HRS. Last COWS: 7 and Last CIWA: 6 @0430. Respirations even and unlabored. Will endorse to day shift nurse.
--- NOTE | 2018-05-13 07:30 | NUR ---
START OF SHIFT Pt 27 y/o male admitted for benzo/ opiate withdrawal. Received in room on bed with eyes closed resting, but arousable to name. Perrla. Alert and oriented to name, place, and time. Skin warm and moist to touch. Appears disheveled. Clothes and empty drink bottles scattered throughout the room. Dirt under finger nails of both hands. Encouraged to maintain hygiene. Anxious and restless. Fidgety, not able to lay still this morning. Irritable. Perspiration on forehead note. Complaints of intermittent perspiration this morning. Generalized discomfort. Generalized body aches. Last cows=7 ciwa=6@0430. It was reported that pt slept for 7 hours last night. Pt is on a prn ativan and prn subutex. Reported that pt was received intoxicated last night. Bed on lowest position with side rails x2 up for safety. Call light within reach.
[2018-05-13] MEDS ORDERED: TUBERCULIN,PURIF.PROT.DERIV. 5 TU/0.1 ML TEST ID ONE (09:00)
[2018-05-13] MEDS: MULTIVITAMINS,THERAPEUTIC TABLET PO SCH (09:25)
--- NOTE | 2018-05-13 09:30 | NUR ---
PRN SUBUTEX ATIVAN cows=16 ciwa=16. Bilateral hand tremors. Complaints of intermittent perspiration, body aches, and generalized discomfort. Anxious and restless. Fidgety. Not able to lay still in bed. Yawning. Irritable. Subutex sl prn per MD order and ativan 2mg po prn per MD order given.
--- NOTE | 2018-05-13 10:30 | NUR ---
PRN SUBUTEX ATHAYDEE MCMILLAN ciwa=12 cows=14. Less anxious. Decreased body aches. Bilateral hand tremors. Chills and sweats. Some abd pain. Irritable.
--- NOTE | 2018-05-13 10:43 | NUR ---
Therapist prompted client to attend twice daily group therapy sessions.
[2018-05-13] MEDS ORDERED: 5 DAY PHENOBARBITAL TAPER -SERENITY PROTOCOL PO PRN (11:30)
[2018-05-13] MEDS ORDERED: 5 DAY TAPER BUPRENORPHINE -SERENITY PROTOCOL SL PRN (11:30)
--- NOTE | 2018-05-13 12:00 | NUR ---
COWS CIWA ASSESSMENT cows=14 ciwa=12. bilateral hand tremors. Anxious and restless. Not able to lay still. Fidgety. Perspiration on forehead noted. Bed sheets moist. Skin moist to touch. Complaints of body aches and generalized discomfort. yawning. Irritable. headaches.
[2018-05-13] MEDS: BUPRENORPHINE HCL 2 MG TAB.SUBL SL SCH ×3 (13:07→22:13)
[2018-05-13] MEDS: PHENOBARBITAL 60 MG TABLET PO SCH ×2 (14:09→22:13)
--- NOTE | 2018-05-13 16:00 | NUR ---
COWS CIWA ASSESSMENT cows=14 ciwa=12. Bilateral hand tremors. Intermittent perspiration. Generalized body aches. Anxious and restless. Irritable. Pressured speech. Generalized discomfort. Yawning.
--- NOTE | 2018-05-13 18:47 | NUR ---
END OF SHIFT Pt 27 y/o male admitted for benzo/ opiate withdrawal. Alert and oriented to name, place, and time. Perrla. Skin warm and moist to touch. Respirations even and unlabored. Appears disheveled and unkempt. Hair uncombed. Clothes dirty. Empty drink bottles scattered throughout the room. Encouraged to maintain hygiene. Anxious and restless. Not able to lay still. Pressured speech. Irritable. Generalized discomfort. Body aches. Yawning. Bilateral hand tremors noted. Isolative to room with no peer interaction today. Pt has low motivation for self care. Pt did not attend group activity. Pt was seen by MD today. Medication compliant. Last cows=14 ciwa=13 @1600. Pt is on a 5 day Phenobarbital taper and is on day 1. Pt also on a 5 day subutex taper and is on day 1. Bed on lowest position with side rails x2 up for safety. Call light within reach.
--- NOTE | 2018-05-13 19:17 | NUR ---
Start of shift note Received report from day shift nurse. Pt is a 27 yo male, A+Ox4, presenting to [facility] for medically supervised Benzo/Opiate withdrawal. Pt was also using Methamphetamines. Pt noted with anxiety, agitation, and restlessness. Pt has HX of anxiety, depression, and bipolar which will be monitored during shift. Pt is on 5 day Phenobarbital and Subutex tapers, tolerated well. Respirations even and unlabored. Will continue to monitor.
--- NOTE | 2018-05-13 20:12 | NUR ---
COWS and CIWA Assessment COWS: 12 and CIWA: 10. Pt noted with pulse 91, chills, sweat on brow, restlessness, enlarged pupils, severe diffuse discomfort, stuffy nose, stomach cramps, fine tremors, agitation, and anxiety. Respirations even and unlabored. Will continue to monitor.
[2018-05-13] MEDS ORDERED: ALBUTEROL SULFATE 8 GM HFA.AER.AD IH SCH (20:30)
[2018-05-13] MEDS ORDERED: ALBUTEROL SULFATE 2.5 MG/3 ML NEBU NEB PRN (21:00)
[2018-05-13] MEDS: QUETIAPINE FUMARATE 100 MG TABLET PO SCH (22:13)
--- NOTE | 2018-05-14 00:17 | NUR ---
V/S refused and COWS and CIWA deferred for sleep. Respirations even and unlabored. Will continue to monitor.
--- NOTE | 2018-05-14 04:56 | NUR ---
V/S refused and COWS and CIWA deferred for sleep. Respirations even and unlabored. Will continue to monitor.
--- NOTE | 2018-05-14 07:00 | NUR ---
End of shift note Pt was continuously noted with fatigue, anxiety, and agitation. Pt remained in room for majority of shift except to get food from kitchen and to go smoke on smoking patio. Pt remained cooperative and compliant with all aspects of treatment. Pt was not given any PRN medications during shift. Pt is on 5 day Phenobarbital and 5 day Subutex tapers, tolerated well. Pt slept for a total of 7 HRS. Last COWS: 12 and Last CIWA: 10 @2011. Respirations even and unlabored. Will endorse to day shift nurse.
--- NOTE | 2018-05-14 07:30 | NUR ---
START OF SHIFT Pt 27 y/o male admitted for benzo/ opiate withdrawal. Received in room on bed with eyes closed resting, but arousable to name. Perrla. Alert and oriented to name, place, and time. Skin warm and moist to touch. Appears disheveled and unkempt. Dirty clothes on. Empty drink bottles scattered throughout the room. Encouraged to maintain hygiene. Anxious. Not able to lay still. Complaints of body aches. Generalized discomfort. Fatigued. Irritable. It was reported that pt slept for 7 hours last night. Las cows=12 ciwa=12 @2011. Pt is on 5 day phenobarbital taper and is on day 2. Also on a 5 day subutex taper and is on day 2. Bed on lowest position with side rails x2 up for safety. Call light within reach.
[2018-05-14 08:00] VITALS: BP 79/34
--- NOTE | 2018-05-14 08:00 | NUR ---
COWS CIWA ASSESSMENT cows=12 ciwa=10. Anxious. Not able to lay still. Complaints of body aches. Generalized discomfort. Fatigued. Irritable. Bilateral hand tremors noted.
[2018-05-14 08:11] LABS: HEPATITIS B SURFACE AG Negative (Negative)
[2018-05-14 08:30] VITALS: BP 107/64
[2018-05-14] MEDS: MULTIVITAMINS,THERAPEUTIC TABLET PO SCH (08:51)
[2018-05-14] MEDS: BUPRENORPHINE HCL 2 MG TAB.SUBL SL SCH ×3 (08:51→20:30)
[2018-05-14] MEDS: PHENOBARBITAL 60 MG TABLET PO SCH ×4 (08:52→20:30)
[2018-05-14 12:00] VITALS: BP 89/70
--- NOTE | 2018-05-14 12:00 | NUR ---
COWS CIWA ASSESSMENT cows=12 ciwa=10. Bilateral hand tremors noted. Anxious. Pressured speech. Generalized discomfort. Complaints of body aches. Fatigued. Irritable. Complaints of intermittent perspiration and chills.
[2018-05-14 12:30] VITALS: BP 102/64
[2018-05-14 16:00] VITALS: BP 102/60
--- NOTE | 2018-05-14 16:00 | NUR ---
COWS CIWA ASSESSMENT cow=12 ciwa=10. Anxious and restless. Pressured speech noted. Irritable. Bilateral hand tremors noted. Complaints of body aches and generalized discomfort. Intermittent perspiration.
--- NOTE | 2018-05-14 18:36 | NUR ---
END OF SHIFT Pt 27 y/o male admitted for benzo/ opiate withdrawal. Alert and oriented to name, place, and time. Perrla. Skin warm and moist to touch. Respirations even and unlabored. Appears disheveled and unkempt. Hair uncombed. Observed wearing same clothes yesterday and the day before and new clothes are on shelf. Empty drink bottles scattered throughout the room. Encouraged to maintain hygiene. Anxious. Fatigued. Pressured speech. Irritable. Generalized discomfort. Body aches. Yawning. Bilateral hand tremors noted. Isolative to room with no peer interaction today. Pt has low motivation for self care. Pt did not attend group activity. Pt was seen by MD today. Medication compliant. Last cows=14 ciwa=13 @1600. Pt is on a 5 day Phenobarbital taper and is on day 2. Pt also on a 5 day subutex taper and is on day 2. Bed on lowest position with side rails x2 up for safety. Call light within reach.
--- NOTE | 2018-05-14 19:30 | NUR ---
Start of shift note Received report from day shift nurse. Patient is a 27 year old male admitted for Benzo/Opiate withdrawal. Patient is on 2nd day of his 5 day Phenobarbital and 5 day Subutex taper. Patient did not require PRN medication. Last COWS 12 and CIWA 10. Patient alert and oriented x 4. Patient presents with flat affect, unshaven, disheveled, difficulty concentrating and eye avoidant . Room dirty and clothes thrown on floor. Safety measures in place. Call light in reach. Will continue to monitor.
[2018-05-14 20:00] VITALS: BP 117/68
--- NOTE | 2018-05-14 20:00 | NUR ---
COWS and CIWA assessment Patient presents with anxiety, intermittent perspiration, chills, abdominal cramping, stuffy nose, muscle aches, mild headache, slight tremors on bilateral hands and restless legs. COWS 13 and CIWA 12.
[2018-05-14] MEDS: METHOCARBAMOL 750 MG TABLET PO PRN (20:30)
[2018-05-14] MEDS: QUETIAPINE FUMARATE 100 MG TABLET PO SCH (20:30)
--- NOTE | 2018-05-14 20:30 | NUR ---
PRN Robaxin administration Patient c/o muscle aches and restless legs. Will monitor for effectiveness.
--- NOTE | 2018-05-14 21:30 | NUR ---
PRN Robaxin re-assessment Patient states Robaxin helpful and effective. Will continue to monitor
[2018-05-15] VITALS: BP 98/58
--- NOTE | 2018-05-15 | NUR ---
COWS and CIWA deferred Patient lying in bed with eyes closed. Respiration even and unlabored. Will continue to monitor
[2018-05-15 04:00] VITALS: BP 108/60
--- NOTE | 2018-05-15 06:56 | NUR ---
End of shift note Patient slept 8 hours. Fluid intake 855 ml. Voided x 2. No BM . Monitored patient throughout shift. Patient withdrawn and isolate self. Patient presented with flat affect, unshaven, disheveled, difficulty concentrating and eye avoidant . Scheduled taper given as ordered, tolerated well and no adverse reaction. PRN Robaxin given for muscle aches. Safety measures in place. Call light in reach. Will continue to monitor. Last COWS 13 and CI.
[2018-05-15 08:00] VITALS: BP 96/60
--- NOTE | 2018-05-15 08:08 | NUR ---
Start of shift note; Received report from night nurse. Patient is a 27 year old male admitted on 05/11/18 for Benzodiazepine/ Opiate withdrawal. Patient was placed on 5 day Phenobarbital and 5 day Subutex taper. Patient received PRN Robaxin noted to be effective. Patient's last COWS is 13 and last CIWA is 12 per endorsement. Patient is AOX4, presented with anxiety, agitation, difficulty concentrating, complaining of fatigue, generalized discomfort, intermittent perspiration, malaise, muscle aches, tremors, restless legs, vivid dreams. Educated patient regarding the importance of compliance to treatment and medication regime. Encouraged patient to participate in group activities and therapies, patient verbalized understanding. All safety measures secured. Will continue to monitor patient.
--- NOTE | 2018-05-15 08:30 | NUR ---
COWS and CIWA Assessment; Patient is AOX4, with current COWS of 16 and CIWA of 12 manifested by anxiety, agitation, difficulty concentrating, complaining of fatigue, generalized discomfort, intermittent perspiration, malaise, muscle aches, tremors, restless legs, vivid dreams. Patient remained on 5 day Phenobarbital and 5 day Subutex taper to help reduce withdrawal symptoms.
[2018-05-15] MEDS: MULTIVITAMINS,THERAPEUTIC TABLET PO SCH (08:52)
[2018-05-15] MEDS: PHENOBARBITAL 60 MG TABLET PO SCH ×3 (08:52→21:30)
[2018-05-15] MEDS ORDERED: BUPRENORPHINE HCL 2 MG TAB.SUBL SL SCH (09:00)
[2018-05-15 12:00] VITALS: BP 120/78
--- NOTE | 2018-05-15 12:00 | NUR ---
COWS and CIWA Assessment; Patient is AOX4, continues to show s/s of withdrawals with current COWS of 16 and CIWA of 12 manifested by anxiety, agitation, difficulty concentrating, complaining of fatigue, generalized discomfort, intermittent perspiration, malaise, muscle aches, tremors, restless legs, vivid dreams. Patient remained on 5 day Phenobarbital and 5 day Subutex taper to help reduce withdrawal symptoms.
--- NOTE | 2018-05-15 14:04 | NUR ---
Therapist prompted client to attend group therapy.
[2018-05-15] MEDS: BUPRENORPHINE HCL 2 MG TAB.SUBL SL SCH ×2 (15:14→21:30)
[2018-05-15 16:00] VITALS: BP 118/61
--- NOTE | 2018-05-15 16:00 | NUR ---
COWS and CIWA Assessment; Patient is AOX4, continues to show s/s of withdrawals with current COWS of 12 and CIWA of 10 manifested by anxiety, agitation, difficulty concentrating, complaining of fatigue, generalized discomfort, intermittent perspiration, malaise, muscle aches, tremors, restless legs, vivid dreams. Medications were effective in reducing withdrawal symptoms.
--- NOTE | 2018-05-15 19:08 | NUR ---
End of shift note; Patient is AOX4 presented with anxiety, agitation, difficulty concentrating, complaining of fatigue, generalized discomfort, intermittent perspiration, malaise, muscle aches, tremors, restless legs, vivid dreams. Patient's last COWS score is 12 and last CIWA score is 10 at 1600. Patient remained compliant with treatment plan and medication regime. Medications were effective in reducing withdrawal symptoms. All safety measures secured . Met all needs.
--- NOTE | 2018-05-15 19:30 | NUR ---
START OF SHIFT Patient is a 27 year old male admitted on 05/11/18 for Benzodiazepine/ Opiate withdrawal; continues on 5 day Phenobarbital and 5 day Subutex taper as ordered. No PRN meds were given per day shift. Last COWS is 12 and last CIWA is 10. Pt is A/O X 4, presented with anxiety, restlessness, generalized discomfort, perspiration and malaise. Pt has been compliant with medications and tx plan. PO fluids encouraged as tolerated.All safety measures in place. Will continue to monitor.
[2018-05-15 20:00] VITALS: BP 105/62
--- NOTE | 2018-05-15 20:00 | NUR ---
COWS and CIWA Assessment; COWS of 10 and CIWA of 10 m/b anxiety, restlessness, generalized discomfort and malaise. Pt continues on 5 day Phenobarbital and 5 day Subutex taper and stated that the medications are helping him with withdrawal symptoms.
[2018-05-15] MEDS: QUETIAPINE FUMARATE 100 MG TABLET PO SCH (21:29)
--- NOTE | 2018-05-16 | NUR ---
CIWA / COWS DEFERRED DUE TO PT BEING ASLEEP.BREATHING IS EVEN AND NON LABORED,NO S/S OF DISTRESS NOTED,V/S REFUSED.WILL CONTINUE TO MONITOR.
--- NOTE | 2018-05-16 04:00 | NUR ---
CIWA / COWS DEFERRED DUE TO PT BEING ASLEEP.BREATHING IS EVEN AND NON LABORED,NO S/S OF DISTRESS NOTED,V/S REFUSED.WILL CONTINUE TO MONITOR.
--- NOTE | 2018-05-16 06:50 | NUR ---
END OF SHIFT Patient is a 27 year old male admitted on 05/11/18 for Benzodiazepine/ Opiate withdrawal; continues on 5 day Phenobarbital and 5 day Subutex taper as ordered. 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 Last COWS is 10 and last CIWA is 10. Pt is A/O X 4.Pt slept 9 hours, fluid intake is 1757 mls,voided x 2, no BM reported.Pt has been compliant with medications and tx plan. PO fluids encouraged as tolerated.All safety measures in place. Will continue to monitor.
--- NOTE | 2018-05-16 07:30 | NUR ---
Start of Shift Notes: Report received from day shift nurse. Per day shift nurse, last COWS was 10 and last CIWA was 10. Upon start of shift, pt was in bed with eyes closed. Pt stated I feel okay. Ill go to the group activities if I feel like it. During assessment, pt is AOx4. Respirations even and unlabored. Pt currently on Valium taper to manage withdrawal symptoms. Bed in lowest position. Side rails up x2. Call light functioning and within reach. All needs attended and met. Will continue to monitor.
[2018-05-16 08:00] VITALS: BP 83/41
--- NOTE | 2018-05-16 08:00 | NUR ---
COWS 12 CIWA 13 Pt noted with flushed, frequent shift, slight tremor, anxiety, and irritability. COWS 12 CIWA 13
[2018-05-16] MEDS: MULTIVITAMINS,THERAPEUTIC TABLET PO SCH (09:39)
[2018-05-16] MEDS: PHENOBARBITAL 60 MG TABLET PO SCH ×2 (09:40→21:42)
[2018-05-16] MEDS: BUPRENORPHINE HCL 2 MG TAB.SUBL SL SCH ×3 (09:40→21:43)
[2018-05-16 12:00] VITALS: BP 102/53
--- NOTE | 2018-05-16 12:00 | NUR ---
COWS 9 CIWA 10 Pt noted with frequent shift, some irritability, anxiety, agitation and nervousness. COWS 9 CIWA 10
[2018-05-16 14:43] LABS: BASOPHILS # (AUTO) 0.1 K/uL (0.0-8.0); BASOPHILS % (AUTO) 0.9 % (0.0-2.0); EOSINOPHILS # (AUTO) 0.2 K/uL (0.0-0.7); EOSINOPHILS % (AUTO) 3.2 % (0.0-7.0); HEMATOCRIT 41.9 % (36.7-47.1); HEMOGLOBIN 14.2 g/dL (12.5-16.3); LYMPHOCYTES # (AUTO) 2.3 K/uL (20.0-40.0); LYMPHOCYTES % (AUTO) 31.6 % (20.5-51.5); MEAN CORPUSCULAR HEMOGLOBIN 28.1 uug (23.8-33.4); MEAN CORPUSCULAR HGB CONC 34 g/dL (32.5-36.3); MEAN CORPUSCULAR VOLUME 83.1 fL (73.0-96.2); MONOCYTES # (AUTO) 0.7 K/uL (2.0-10.0); MONOCYTES % (AUTO) 10.5 % (0.0-11.0); NEUTROPHILS # (AUTO) 3.8 K/uL (1.8-8.9); NEUTROPHILS % (AUTO) 53.8 % (38.5-71.5); PLATELET COUNT (AUTO) 194 K/uL (152-348); RED BLOOD CELL COUNT(AUTO) 5.05 MIL/uL (4.06-5.63); WHITE BLOOD COUNT (AUTO) 7.1 K/uL (3.6-10.2)
[2018-05-16 16:00] VITALS: BP 118/64
--- NOTE | 2018-05-16 16:00 | NUR ---
COWS 9 CIWA 10 Pt noted with restlessness, irritability, anxiety, agitation. COWS 9 CIWA 10
--- NOTE | 2018-05-16 19:12 | NUR ---
End of Shift Note: Report given to band saw operator nurse. Pt was able to participate in afternoon group activity. Pt had no complaints during shift. No PRNs given. Pt continues on 5-day Subutex and 5-day Phenobarbital taper. Last COWS was 9 and last CIWA was 10 at 1600. Bed in lowest position. Side rails up x2. Call light functioning and within reach. All needs attended and met.
--- NOTE | 2018-05-16 19:30 | NUR ---
START OF SHIFT Patient is a 27 year old male admitted on 05/11/18 for Benzodiazepine/ Opiate withdrawal; continues on 5 day Phenobarbital and 5 day Subutex taper as ordered. No PRN medications were given per day shift. Last COWS 9 and last CIWA 10. Pt is A/A/O X 4,received in stable condition. Pt has been compliant with medications and tx plan. PO fluids encouraged as tolerated.All safety measures in place. Will continue to monitor.
[2018-05-16 20:00] VITALS: BP 110/63
--- NOTE | 2018-05-16 20:00 | NUR ---
COWS=8; CIWA=8. Pt is sad,depressed,in bed,c/o feeling tremulous,with aches and pain,refused to take any meds at this time,will continue to monitor.
[2018-05-16] MEDS: QUETIAPINE FUMARATE 100 MG TABLET PO SCH (21:42)
[2018-05-16] MEDS: METHOCARBAMOL 750 MG TABLET PO PRN (21:51)
--- NOTE | 2018-05-16 21:51 | NUR ---
PRN MEDS PRN Robaxin 750 mg PO given for myalgia. PRN Benadryl 50 mg PO given for insomnia;will monitor.
--- NOTE | 2018-05-16 22:50 | NUR ---
PRN REASSESSMENT Pt is calm and resting in bed with eyes closed; breathing is even and non labored,no s/s of distress noted,will continue to monitor.
--- NOTE | 2018-05-17 | NUR ---
CIWA / COWS DEFERRED DUE TO PT BEING ASLEEP.BREATHING IS EVEN AND NON LABORED,NO S/S OF DISTRESS NOTED,V/S REFUSED.WILL CONTINUE TO MONITOR.
--- NOTE | 2018-05-17 07:08 | NUR ---
END OF SHIFT Patient is a 27 year old male admitted on 05/11/18 for Benzodiazepine/ Opiate withdrawal; continues on 5 day Phenobarbital and 5 day Subutex taper as ordered. 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 Last COWS is 10 and last CIWA is 10. Pt is A/O X 4.Pt slept 9 hours, fluid intake is 1757 mls,voided x 2, no BM reported.Pt has been compliant with medications and tx plan. PO fluids encouraged as tolerated.All safety measures in place. Will continue to monitor. Addendum: 05/17/18 at 0710 by EVANGELINA MELCHOR RN CHARTED IN ERROR.
--- NOTE | 2018-05-17 07:11 | NUR ---
END OF SHIFT Patient is a 27 year old male admitted on 05/11/18 for Benzodiazepine/ Opiate withdrawal; continues on 5 day Phenobarbital and 5 day Subutex taper as ordered. PRN meds Robaxin and Benadryl were given during bulk tank car unloader and were effective. Last COWS 8 and last CIWA 8. Pt is A/O X 4.Pt slept 7 hours, fluid intake is 1972 mls,voided x 5, BM x 1 reported.Pt has been compliant with medications and tx plan. PO fluids encouraged as tolerated.All safety measures in place. Will continue to monitor.
[2018-05-17 08:00] VITALS: BP 90/50
--- NOTE | 2018-05-17 08:00 | NUR ---
Start of Shift Notes/COWS Assessment: Received patient in his room. Alert and oriented x 4. No AV hallucinations. Denies S/i or H/I noted. Patient appears disheveled, odorous, uncombed hair and diaphoretic. Room is messy with garbage noted in the room. Linen on the floor and unwashed clothing at bedside. He complains of anxiety. Gross tremors noted to BUE. Difficulty concentrating and guarded. COWS 14/CIWA 12 upon assessment. Patient is a 27 year old male admitted for BZO/Opiate withdrawal who was placed on a 5-day Phenobarbital and 5-day Subutex taper as ordered. Educated patient on his current plan of care for the day and his medication regimen. Encouraged oral fluid intake and encouraged group participation to learn new skills to prevent relapse. Per night report, patient was given PRN Robaxin and Benadryl during the night. Last COWS 8/CIWA 8. Slept for 7 hours. All needs met and attended will continue to monitor and support according to plan of care.
[2018-05-17] MEDS: MULTIVITAMINS,THERAPEUTIC TABLET PO SCH (08:57)
[2018-05-17] MEDS ORDERED: BUPRENORPHINE HCL 2 MG TAB.SUBL SL SCH (09:00)
[2018-05-17] MEDS ORDERED: PHENOBARBITAL 60 MG TABLET PO SCH (09:00)
[2018-05-17 12:00] VITALS: BP 104/54
--- NOTE | 2018-05-17 12:00 | NUR ---
COWS/CIWA Assessment: COWS 10/CIWA 12, patient continues to present with facial flushing, difficulty concentrating, anxiety, agitation, gross tremors, fatigue, and myalgia. Offered PRNs. Support provided. Encouraged group participation. Patient was not able to attend morning group. Will continue to monitor and encouraged oral fluid intake.
--- NOTE | 2018-05-17 15:00 | NUR ---
Therapist prompted client to attend group therapy.
[2018-05-17] MEDS ORDERED: QUET100T PO (15:55)
[2018-05-17] MEDS ORDERED: CLON0.1T14 PO (15:55)
[2018-05-17] MEDS ORDERED: METH-406 PO (15:55)
[2018-05-17] MEDS ORDERED: HYDR-3895 PO (15:55)
[2018-05-17 16:00] VITALS: BP 105/55
--- NOTE | 2018-05-17 16:14 | NUR ---
COWS/CIWA Assessment: COWS 7/CIWA 10, patient continues to present with gross tremors, intermittent perspiration, anxiety, malaise, fatigue and generalize discomfort. Patient requires encouragement to attend group. Patient continues to isolate self after much encouragement from stuff to socialize and verbalize his feelings and concerns. Oral fluids encouraged. Support provided. Will continue to monitor closely.
--- NOTE | 2018-05-17 19:18 | NUR ---
End of Shift Notes: Patient completed his 5-day Subutex and 5-day Phenobarbital taper successfully. No adverse reactions noted. VS monitored closely. No significant abnormalities noted. Withdrawal symptoms were closely monitored. Initial COWS 14/CIWA 12, patient presented with gross tremors, difficulty concentrating, restlessness, increased irritability, anxiety, agitation, tremors, myalgia, sweating, chills and hot flashes, fatigue and generalized discomfort. Last COWS 7/CIWA 10 at 1600. Patient verbalized that Subutex and Phenobarbital has been effective in reducing his withdrawal symptoms. Patient is isolative and with flat affect. Requires encouragement to attend group and to verbalize his feelings and concerns. Unable to participate in group and activities today. However, she was able to join her peers and socialize for dinner. Appetite fair. All needs met and attended. Will continue to monitor.
[2018-05-17 20:00] VITALS: BP 111/62
--- NOTE | 2018-05-17 20:00 | NUR ---
Start of Shift Patient observed to be avoidant with conversation, is melancholic and in depressed mood. Patient verbalized feeling "tired and having fatigue." Patient with flat affect and noted to be disheveled, unkempt and with dirty fingernails. Encouraged patient to take a shower and he verbalized that he would take a shower in the morning. Phenobarbital and Subutex tapers completed. Patient continues with non-narcotic and non-benzo PRN meds for residual symptoms. Fall, universal, seizure and safety prec in place. Call light within reach. Re-educated patient with the plan of care and medication side effects. Latest COWS=7, CIWA=8. Will continue to monitor.
[2018-05-17] MEDS: QUETIAPINE FUMARATE 100 MG TABLET PO SCH (23:07)
[2018-05-18] VITALS: BP 108/71
[2018-05-18 04:00] VITALS: BP 104/60
--- NOTE | 2018-05-18 07:18 | NUR ---
End of Shift Patient continues to have a flat affect, is melancholic and in depressed mood. Patient verbalized feeling anxious from moving on to the next step, which is treatment. Patient to be discharged today. Patient was encouraged to take a shower today. Patient verbalized understanding. Fall, universal, seizure and safety prec in place. Call light within reach. Latest COWS=6, CIWA=7 and slept for 7 hours. Endorsed to AM shift nurse for continuity of care.
--- NOTE | 2018-05-18 07:20 | NUR ---
Start Of Shift Report received from drug abuse technician nurse. Patient is a 27 year old male admitted for BZO/Opiate withdrawal who completed his 5-day Phenobarbital and 5-day Subutex taper as ordered. Per drug abuse technician his last Cows 6, CIWA 7 Upon start of shift pt noted laying in his bed with his eyes closed resting, breathing even and unlabored. When greeted pt stated " Im getting discharged today right?". Pt's room appears unorganized and messy. Pt appears anxious stating Im just a little nervous about my discharge. During assessment, pt is AOx4. Lung sounds clear bilaterally. Radial pulse is regular and non-bounding. Abdomen soft and non-tender. Pt's skin is warm and intact. Pt denies any pain at the moment. Encouraged pt to drink plenty of fluids to keep hydrated and help the detox process. Pt did not received any PRN medications last night, pt slept a total of 7 hours last night. Bed in lowest position. Side rails up x2. Call light functioning and within reach. All needs attended and met. Will continue to monitor.
[2018-05-18 08:00] VITALS: BP 117/63
[2018-05-18] MEDS: MULTIVITAMINS,THERAPEUTIC TABLET PO SCH (08:53)
--- NOTE | 2018-05-18 09:30 | NUR ---
Discharge note Pt was discharged from [facility], pt was provided with all the discharge paperwork, all paperwork explained to pt. Pt verbalized understanding and signed the papers. Pt is A&Ox4 vitals WNL, pt denies any SI/HI. all belongings returned to pt, pt did not bring any of his home medications. Pt left facility at 0927 05/18/18.
== END 2018-05-18 09:27 | disposition home or self-care (01) | DRG 895 ==
LOC: SRC 20:52
PROVIDERS: ADMIT Family Medicine Addiction Medicine; ATTEND Family Medicine Addiction Medicine
PROC: HZ2ZZZZ Detoxification Services for Substance Abuse Treatment (ICD-10-PCS; principal; 2018-05-12)
PROC: HZ31ZZZ Individual Counseling for Substance Abuse Treatment, Behavioral (ICD-10-PCS; 2018-05-13)
DX: F11.23 Opioid dependence with withdrawal (principal); F13.229 Sedative, hypnotic or anxiolytic dependence with intoxication, unspecified; F15.21 Other stimulant dependence, in remission; A56.2 Chlamydial infection of genitourinary tract, unspecified; F41.9 Anxiety disorder, unspecified; F17.210 Nicotine dependence, cigarettes, uncomplicated; D69.6 Thrombocytopenia, unspecified; F31.9 Bipolar disorder, unspecified; G47.00 Insomnia, unspecified; Z81.3 Family history of other psychoactive substance abuse and dependence
CPT/HCPCS: 36415; 80307; 80324; 80346; 80361; 83690; 83735; 84443; 85025; 86592; 86705; 86803; 87340; 87806; G0480; J8499; Q0163